=== PATIENT | female | born 1955 | race Caucasian/White ===

== ENCOUNTER 2019-02-14 00:15 | Inpatient (IN) | payer MEDICARE, OTHER ==
[2019-02-14] MEDS ORDERED: DILTIAZEM DRIP BOLUS FROM BAG 1 MG SOLN IV ONE (00:43)
[2019-02-14] MEDS ORDERED: DILTIAZEM 125 MG in SODIUM CHLORIDE 0.9% 100 ML IV SCH (00:45)
--- NOTE | 2019-02-14 00:45 | ED ---
SOB HPI - General Chief Complaint: Shortness of Breath Stated Complaint: Shortness of Breath Time Seen by Provider: 02/14/19 00:25 Source: patient Mode of arrival: ambulatory Limitations: no limitations - History of Present Illness Initial Comments: this patient is a 63-year-old woman who presents with complaint of shortness of breath and orthopnea. The patient's symptoms began between 1-2 weeks ago and started with some exertional dyspnea and orthopnea. She states that she had previously had this when she had gone and atrial fibrillation and she thought that she may have had a recurrence of the A. fib. The patient states that she was not feeling palpitations, but states that she did not have palpitations the last time she was in atrial fibrillation. The symptoms seemed to be worse over the course of this evening and the patient's daughter convinced her to be evaluated tonight. Patient denies chest pain, nausea or vomiting. MD Complaint: shortness of breath Onset/Timin -: week(s) Improves With: nothing Worsens With: lying flat, exertion Known History Of: congestive heart failure Associated Symptoms: denies other symptoms Treatments Prior to Arrival: none - Related Data Home Oxygen Therapy: No Home Medications Medication Instructions Recorded Confirmed Atorvastatin [Lipitor] 40 mg PO DAILY 01/19/16 01/19/16 Lisinopril [Zestril] 20 mg PO DAILY 01/19/16 01/19/16 Previous Rx's Medication Instructions Recorded ALPRAZolam [Xanax] 0.25 mg PO TID PRN #0 tab 01/23/16 HYDROcodone/APAP 5-325MG [Verner 1 each PO Q6HR PRN #0 tab 01/23/16 5-325] Sulfamethox-Tmp 800-160Mg [Bactrim 1 tab PO Q12HR #10 tab 01/23/16 DS 800-160 mg] Warfarin [Coumadin] 5 mg PO 1800 #30 tab 01/23/16 Allergies Allergy/AdvReac Type Severity Reaction Status Date / Time No Known Allergies Allergy Verified 02/14/19 00:20 Review of Systems ROS Statement: Those systems with pertinent positive or pertinent negative responses have been documented in the HPI. ROS Other: All systems not noted in ROS Statement are negative. Constitutional: Denies: fever, chills Respiratory: Reports: dyspnea. Denies: cough, wheezes, hemoptysis Cardiovascular: Reports: dyspnea on exertion, orthopnea, edema. Denies: chest pain, palpitations, syncope Gastrointestinal: Denies: abdominal pain, nausea, vomiting, melena, hematochezia Genitourinary: Denies: dysuria, hematuria Musculoskeletal: Denies: back pain Skin: Denies: rash Neurological: Denies: headache, weakness, numbness Past Medical History Past Medical History: Atrial Fibrillation, Heart Failure, CVA/TIA, Hypertension Additional Past Medical History / Comment(s): TIA, BRONCHITIS, UTI'S,ARHTRITIS, ANEMIA WHEN SHE WAS , STRESS TEST(WNL) PT PUT HER SELF ON LOW CARB DIET AND LOST 40 POUNDS IN A YEAR. BROKE RT HAND D/T A FALL JUST GOT CAST OFF 3 DAYS AGO,OFF WORK FOR PT.PAST CHF(2013), PT ON COUMADIN FOR AFIB. History of Any Multi-Drug Resistant Organisms: None Reported Past Surgical History: Section Additional Past Surgical History / Comment(s): X3, TUMMY TUCK Past Anesthesia/Blood Transfusion Reactions: Motion Sickness Past Psychological History: No Psychological Hx Reported Smoking Status: Never smoker Past Alcohol Use History: None Reported Past Drug Use History: None Reported - Past Family History Father Family Medical History: Myocardial Infarction ([place]) Additional Family Medical History / Comment(s): PACEMAKER Mother Family Medical History: Cancer Additional Family Medical History / Comment(s): LYMPHMA General Exam Limitations: no limitations General appearance: alert, in no apparent distress Head exam: Present: atraumatic, normocephalic Eye exam: Present: normal appearance Respiratory exam: Present: rales (bilateral bases). Absent: respiratory distress, wheezes, rhonchi, stridor, accessory muscle use, decreased breath sounds, prolonged expiratory Cardiovascular Exam: Present: tachycardia, irregular rhythm, normal heart sounds. Absent: systolic murmur, diastolic murmur, rubs, gallop GI/Abdominal exam: Present: soft. Absent: distended, tenderness, guarding, re bound, mass Extremities exam: Present: normal inspection, normal capillary refill, pedal edema. Absent: calf tenderness Back exam: Present: normal inspection. Absent: CVA tenderness (R), CVA tenderness (L) Neurological exam: Present: alert Skin exam: Present: warm, dry, intact, normal color. Absent: rash Course Vital Signs 02/14/19 02/14/19 02/14/19 00:17 00:43 00:57 Temperature 98 F Pulse Rate 139 H 130 H Respiratory 22 22 20 Rate Blood Pressure 159/118 150/115 O2 Sat by Pulse 96 97 Oximetry Medical Decision Making - Lab Data Result diagrams: 02/14/19 00:40 02/14/19 00:40 Lab Results 02/14/19 02/14/19 02/14/19 Range/Units 00:40 00:40 00:40 WBC 7.4 (3.8-10.6) k/uL RBC 4.46 (3.80-5.40) m/uL Hgb 12.8 (11.4-16.0) gm/dL Hct 40.0 (34.0-46.0) % MCV 89.7 (80.0-100.0) fL MCH 28.8 (25.0-35.0) pg MCHC 32.1 (31.0-37.0) g/dL RDW 13.2 (11.5-15.5) % Plt Count 166 (150-450) k/uL Neutrophils % 61 % Lymphocytes % 32 % Monocytes % 5 % Eosinophils % 1 % Basophils % 1 % Neutrophils # 4.5 (1.3-7.7) k/uL Lymphocytes # 2.3 (1.0-4.8) k/uL Monocytes # 0.3 (0-1.0) k/uL Eosinophils # 0.1 (0-0.7) k/uL Basophils # 0.0 (0-0.2) k/uL PT 34.3 H (9.0-12.0) sec INR 3.6 H (<1.2) APTT 39.1 H (22.0-30.0) sec D-Dimer <0.17 (<0.60) mg/L FEU Sodium 139 (137-145) mmol/L Potassium 3.8 (3.5-5.1) mmol/L Chloride 107 (98-107) mmol/L Carbon Dioxide 24 (22-30) mmol/L Anion Gap 8 mmol/L BUN 25 H (7-17) mg/dL Creatinine 0.90 (0.52-1.04) mg/dL Est GFR (CKD-EPI)AfAm 78 (>60 ml/min/1.73 sqM) Est GFR (CKD-EPI)NonAf 68 (>60 ml/min/1.73 sqM) Glucose 156 H (74-99) mg/dL Calcium 9.2 (8.4-10.2) mg/dL Total Bilirubin 0.7 (0.2-1.3) mg/dL AST 41 H (14-36) U/L ALT 33 (4-34) U/L Alkaline Phosphatase 77 (38-126) U/L Troponin I (0.000-0.034) ng/mL NT-Pro-B Natriuret Pep pg/mL Total Protein 6.3 (6.3-8.2) g/dL Albumin 4.0 (3.5-5.0) g/dL 02/14/19 02/14/19 Range/Units 00:40 00:40 WBC (3.8-10.6) k/uL RBC (3.80-5.40) m/uL Hgb (11.4-16.0) gm/dL Hct (34.0-46.0) % MCV (80.0-100.0) fL MCH (25.0-35.0) pg MCHC (31.0-37.0) g/dL RDW (11.5-15.5) % Plt Count (150-450) k/uL Neutrophils % % Lymphocytes % % Monocytes % % Eosinophils % % Basophils % % Neutrophils # (1.3-7.7) k/uL Lymphocytes # (1.0-4.8) k/uL Monocytes # (0-1.0) k/uL Eosinophils # (0-0.7) k/uL Basophils # (0-0.2) k/uL PT (9.0-12.0) sec INR (<1.2) APTT (22.0-30.0) sec D-Dimer (<0.60) mg/L FEU Sodium (137-145) mmol/L Potassium (3.5-5.1) mmol/L Chloride (98-107) mmol/L Carbon Dioxide (22-30) mmol/L Anion Gap mmol/L BUN (7-17) mg/dL Creatinine (0.52-1.04) mg/dL Est GFR (CKD-EPI)AfAm (>60 ml/min/1.73 sqM) Est GFR (CKD-EPI)NonAf (>60 ml/min/1.73 sqM) Glucose (74-99) mg/dL Calcium (8.4-10.2) mg/dL Total Bilirubin (0.2-1.3) mg/dL AST (14-36) U/L ALT (4-34) U/L Alkaline Phosphatase (38-126) U/L Troponin I 0.037 H* (0.000-0.034) ng/mL NT-Pro-B Natriuret Pep 8950 pg/mL Total Protein (6.3-8.2) g/dL Albumin (3.5-5.0) g/dL - EKG Data -: EKG Interpreted by Me EKG shows normal: axis (normal), intervals (normal), QRS complexes (normal), ST- T waves (normal) Rate: tachycardia (underlying rhythm is atrial fibrillation with a rate approximately 155 bpm) Critical Care Time Critical Care Time: Yes (30 minutes) Disposition Clinical Impression: Atrial fibrillation with rapid ventricular response Disposition: ADMITTED IP TO THIS HOSP Condition: Fair Referrals: Kiran Novak MD [Primary Care Provider] - 1-2 days
[2019-02-14 00:56] LABS: Basophils % (A) 1 %; Eosinophils # (A) 0.1 k/uL (0-0.7); Eosinophils % (A) 1 %; HGB 12.8 gm/dL (11.4-16.0); Lymphocytes # (A) 2.3 k/uL (1.0-4.8); Lymphocytes % (A) 32 %; MCH 28.8 pg (25.0-35.0); MCHC 32.1 g/dL (31.0-37.0); MCV 89.7 fL (80.0-100.0); Mean Platelet Volume 7.9; Monocytes # (A) 0.3 k/uL (0-1.0); Monocytes % (A) 5 %; Neutrophils # (A) 4.5 k/uL (1.3-7.7); Neutrophils % (A) 61 %; Platelet Count 166 k/uL (150-450); RBC 4.46 m/uL (3.80-5.40); RDW 13.2 % (11.5-15.5); WBC 7.4 k/uL (3.8-10.6)
[2019-02-14 01:04] LABS: Calcium 9.2 mg/dL (8.4-10.2); Potassium 3.8 mmol/L (3.5-5.1); Total Bilirubin 0.7 mg/dL (0.2-1.3); Total Protein 6.3 g/dL (6.3-8.2)
[2019-02-14 01:07] LABS: D-Dimer <0.17 mg/L FEU (<0.60); INR 3.6 (<1.2); Partial Thromboplastin Time 39.1 sec (22.0-30.0); Prothrombin Time 34.3 sec (9.0-12.0)
--- NOTE | 2019-02-14 01:13 | XR ---
EXAMINATION TYPE: XR chest 2V DATE OF EXAM: 02/14/2019 COMPARISON: 03/22/2013 HISTORY: Short of breath TECHNIQUE: 2 views FINDINGS: There is blunting of the costophrenic angles. Heart is enlarged. There is mild pulmonary co ngestion. There are chest leads. IMPRESSION: There is evidence of mild congestive heart failure with increased pleural fluid compared to last exam.
[2019-02-14] MEDS ORDERED: ALPRAZolam 0.25 MG TAB PO PRN (01:45)
[2019-02-14] MEDS ORDERED: HYDROcodone/APAP 5-325MG 1 EACH TAB PO PRN (01:45)
[2019-02-14] MEDS: SODIUM CHLORIDE 0.9% 1,000 ML IV SCH (01:58)
[2019-02-14] MEDS: FUROSEMIDE 10 MG/ML 4 ML VIAL IV SCH ×2 (09:00→20:44)
[2019-02-14] MEDS: LISINOPRIL 20 MG TAB PO SCH (09:01)
[2019-02-14] MEDS: METOPROLOL TARTRATE 25 MG TAB PO SCH ×2 (09:01→20:44)
[2019-02-14] MEDS: ATORVASTATIN 40 MG TAB PO SCH (09:01)
[2019-02-14 09:22] LABS: Cholesterol 109 mg/dL (<200); HDL Cholesterol 50 mg/dL (40-60); LDL Cholesterol,Calculated 38 mg/dL (0-99); Triglycerides 103 mg/dL (<150)
--- NOTE | 2019-02-14 09:44 | P.CRDCN ---
History of Present Illness History of present illness: HISTORY OF PRESENTING ILLNESS This is a pleasant 63-year-old female past medical history significant for is no atrial fibrillation on long-term anticoagulation, systolic heart fail ure associated with A. fib and hypertension. She follows in the office with Dr. Amin. We have been asked to see in consultation for atrial fibrillation with rapid ventricular response. She states for the previous one month she has been noticing exertional shortness of breath. It has been getting progressively worse. She works at a quite active job at [employer] which requires a lot of lifting and exertion. She has noticed she has had to stop and take frequent breaks while working as well as at home. She has also had more frequent orthopnea and has been sleeping propped up. She does not feel palpitations or dizziness. She states 3 days ago she did experience an episode of chest disco mfort while at work. She had been lifting some boxes and she felt as though she pulled a muscle. She states the pain in the chest was worse when she moved her arms. It is not associated with exertion. There is no radiation to the arm, back, neck or jaw. DIAGNOSTICS EKG reveals atrial fibrillation with rapid ventricular response. Chest xray congestive heart failure. Laboratory reviewed, CBC unremarkable, INR 3.6, d-dimer less than 0.17, sodium 139, potassium 3.8, creatinine 0.9, troponin 0.037, NT proBNP 8950, LDL 38. Current cardiac medications include Coumadin, lisinopril 40 mg daily, Lasix 20 mg daily and atorvastatin 40 mg daily. REVIEW OF SYSTEMS At the time of my exam: CONSTITUTIONAL: Denies fever or chills. CARDIOVASCULAR: Complains of exertional shortness of breath, PND and orthopnea Denies chest pain or palpitations. RESPIRATORY: Denies cough. GASTROINTESTINAL: Denies abdominal pain, diarrhea, constipation, nausea or vomiting. MUSCULOSKELETAL: Denies myalgias. NEUROLOGIC: Denies numbness, tingling or weakness. ENDOCRINE: Denies fatigue, weight change, polydipsia or polyurina. GENITOURINARY: Denies burning, hematuria or urgency with micturation. HEMATOLOGIC: Denies history of anemia or bleeding. PHYSICAL EXAMINATION Blood pressure 136/99 heart rate and 130 afebrile and maintaining oxygen saturation on room air. CONSTITUTIONAL: No apparent distress. HEENT: Head is normocephalic. Pupils are equal, round. Sclerae anicteric. Mucous membranes of the mouth are moist. No JVD. No carotid bruit. CHEST EXAMINATION: Bibasilar rales, no wheezes or rhonchi No chest wall tenderness is noted on palpation or with deep breathing. HEART EXAMINATION: Irregular rate and rhythm. S1, S2 heard. No murmurs, gallops or rub. ABDOMEN: Soft, nontender. Positive bowel sounds. EXTREMITIES: 2+ peripheral pulses, trace bilateral lower extremity edema and no calf tenderness. NEUROLOGIC EXAMINATION: Patient is awake, alert and oriented x3. ASSESSMENT Atrial fibrillation with rapid ventricular response, history of paroxysmal A. fib on long-term anticoagulation Acute on chronic heart failure, recent echo in the office revealed preserved LV systolic function with ejection fraction 55%. Prior to that in 2013 ejection fraction was 40%. Mild troponin elevation, unknown etiology at this time. We will continue to trend and assess for rise and fall. May be related to RVR Hypertension Supratherapeutic INR PLAN Initiate amiodarone infusion to convert to sinus mechanism. Obtain 2-D echocardiogram and Doppler study to assess cardiac structure and function. Obtain stat troponin. Initiate on IV Lasix 40 mg twice a day and Lopressor 25 mg twice a day. Continue Cardizem infusion. Document accurate intake and output along with daily weights. Follow electrolytes and renal function in the morning. Further recommendations to follow based upon clinical course. Thank you kindly for this consultation. Nurse Practitioner note has been reviewed, I agree with a documented findings and plan of care. Patient was seen and examined. Past Medical History Past Medical History: Atrial Fibrillation, Heart Failure, CVA/TIA, Hypertension Additional Past Medical History / Comment(s): TIA, BRONCHITIS, UTI'S,ARHTRITIS, ANEMIA WHEN SHE WAS , STRESS TEST(WNL) PT PUT HER SELF ON LOW CARB DIET AND LOST 40 POUNDS IN A YEAR. BROKE RT HAND D/T A FALL JUST GOT CAST OFF 3 DAYS AGO,OFF WORK FOR PT.PAST CHF(2013), PT ON COUMADIN FOR AFIB. History of Any Multi-Drug Resistant Organisms: None Reported Past Surgical History: Section Additional Past Surgical History / Comment(s): X3, TUMMY TUCK Past Anesthesia/Blood Transfusion Reactions: Motion Sickness Past Psychological History: No Psychological Hx Reported Smoking Status: Never smoker Past Alcohol Use History: None Reported Past Drug Use History: None Reported - Past Family History Father Family Medical History: Myocardial Infarction ([place]) Additional Family Medical History / Comment(s): PACEMAKER Mother Family Medical History: Cancer Additional Family Medical History / Comment(s): LYMPHMA Medications and Allergies Home Medications Medication Instructions Recorded Confirmed Type Atorvastatin [Lipitor] 40 mg PO DAILY 01/19/16 02/14/19 History Acetaminophen Tab [Tylenol Tab] 650 mg PO Q4H PRN 02/14/19 02/14/19 History Furosemide [Lasix] 20 mg PO DAILY 02/14/19 02/14/19 History Lisinopril 40 mg PO DAILY 02/14/19 02/14/19 History Warfarin [Coumadin] 2.5 mg PO TUSA 02/14/19 02/14/19 History Warfarin [Coumadin] 5 mg PO SUMOWETHFR 02/14/19 02/14/19 History Allergies Allergy/AdvReac Type Severity Reaction Status Date / Time No Known Allergies Allergy Verified 02/14/19 08:07 Physical Exam Vitals: Vital Signs Temp Pulse Pulse Resp BP BP Pulse Ox 02/14/19 08:00 97.2 F L 130 H 18 136/99 94 L 02/14/19 03:02 97.3 F L 105 H 18 121/86 95 02/14/19 00:57 130 H 20 150/115 97 02/14/19 00:43 22 02/14/19 00:17 98 F 139 H 22 159/118 96 Intake and Output 02/13/19 02/14/19 02/14/19 22:59 06:59 14:59 Intake Total 400 210 Balance 400 210 Intake: IV 10 Invasive Line 1 10 Oral 400 200 Other: Weight 86 kg Results 02/14/19 00:40 02/14/19 00:40 Cardiac Enzymes 02/14/19 02/14/19 Range/Units 00:40 00:40 AST 41 H (14-36) U/L Troponin I 0.037 H* (0.000-0.034) ng/mL Coagulation 02/14/19 Range/Units 00:40 PT 34.3 H (9.0-12.0) sec APTT 39.1 H (22.0-30.0) sec Lipids 02/14/19 Range/Units 08:55 Triglycerides 103 (<150) mg/dL Cholesterol 109 (<200) mg/dL HDL Cholesterol 50 (40-60) mg/dL CBC 02/14/19 Range/Units 00:40 WBC 7.4 (3.8-10.6) k/uL RBC 4.46 (3.80-5.40) m/uL Hgb 12.8 (11.4-16.0) gm/dL Hct 40.0 (34.0-46.0) % Plt Count 166 (150-450) k/uL Comprehensive Metabolic Panel 02/14/19 Range/Units 00:40 Sodium 139 (137-145) mmol/L Potassium 3.8 (3.5-5.1) mmol/L Chloride 107 (98-107) mmol/L Carbon Dioxide 24 (22-30) mmol/L BUN 25 H (7-17) mg/dL Creatinine 0.90 (0.52-1.04) mg/dL Glucose 156 H (74-99) mg/dL Calcium 9.2 (8.4-10.2) mg/dL AST 41 H (14-36) U/L ALT 33 (4-34) U/L Alkaline Phosphatase 77 (38-126) U/L Total Protein 6.3 (6.3-8.2) g/dL Albumin 4.0 (3.5-5.0) g/dL Current Medications Generic Name Dose Route Start Last Admin Trade Name Freq PRN Reason Stop Dose Admin Hydrocodone Bitart/Acetaminophen 1 each 02/14/19 01:45 [place] 5-325 PO Q6HR PRN Moderate Pain Alprazolam 0.25 mg 02/14/19 01:45 Xanax PO TID PRN Anxiety Atorvastatin Calcium 40 mg 02/14/19 09:00 02/14/19 09:01 Lipitor PO 40 mg DAILY ANDREINA Administration Furosemide 40 mg 02/14/19 09:00 02/14/19 09:00 Lasix IV 40 mg Q12HR ANDREINA Administration Diltiazem HCl 125 mg/ Sodium 125 mls @ 5 mls/hr 02/14/19 00:45 02/14/19 00:54 Chloride IV 5 mg/hr .Q24H ANDREINA 5 mls/hr Administration 5 MG/HR Sodium Chloride 1,000 mls @ 20 mls/hr 02/14/19 01:45 12/22/19 01:58 Saline 0.9% IV 20 mls/hr .Q24H ANDREINA Administration Lisinopril 20 mg 02/14/19 09:00 02/14/19 09:01 Zestril PO 20 mg DAILY ANDREINA Administration Metoprolol Tartrate 25 mg 02/14/19 09:00 02/14/19 09:01 Lopressor PO 25 mg BID ANDREINA Administration Warfarin Sodium 5 mg 02/15/19 18:00 Coumadin PO 1800 ANDREINA Intake and Output 02/13/19 02/14/19 02/14/19 22:59 06:59 14:59 Intake Total 400 210 Balance 400 210 Intake: IV 10 Invasive Line 1 10 Oral 400 200 Other: Weight 86 kg 02/14/19 00:40 02/14/19 00:40
[2019-02-14] MEDS ORDERED: DEXTROSE 5% IN WATER 100 ML with AMIODARONE 150 MG IV ONE (09:50)
[2019-02-14] MEDS ORDERED: AMIODARONE 360 MG in DEXTROSE 5% IN WATER 200 ML IV ONE ×2 (10:00)
[2019-02-14 10:45] VITALS: BMI 30.6
--- NOTE | 2019-02-14 11:46 | P.HPIM ---
History of Present Illness 63-year-old female came in with comments of shortness of breath orthopnea possible proximal nocturnal dyspnea, patient does have history of atrial fibrillation found to be in A. fib with rapid ventricular rate patient had normal ejection fraction from the recent echocardiogram patient had a low ejection fraction 2013. Patient shortness of breath has been progressively getting worse for few weeks. Patient denied any palpitations patient denied any lightheadedness. Patient denied any significant chest pain patient does have m inimally elevated troponin probably secondary to heart failure and A. fib. Patient had some musculoskeletal chest pain Review of Systems REVIEW OF SYSTEMS: CONSTITUTIONAL: No fever, no malaise, no fatigue. HEENT: No recent visual problems or hearing problems. Denied any sore throat. CARDIOVASCULAR: no palpitations, no syncope. PULMONARY:no cough, no hemoptysis. GASTROINTESTINAL: No diarrhea, no nausea, no vomiting, no abdominal pain. NEUROLOGICAL: No headaches, no weakness, no numbness. HEMATOLOGICAL: Denies any bleeding or petechiae. GENITOURINARY: Denies any burning micturition, frequency, or urgency. MUSCULOSKELETAL/RHEUMATOLOGICAL: Denies any joint pain, swelling, or any muscle pain. ENDOCRINE: Denies any polyuria or polydipsia. The rest of the 14-point review of systems is negative. Past Medical History Past Medical History: Atrial Fibrillation, Heart Failure, CVA/TIA, Hypertension Additional Past Medical History / Comment(s): TIA, BRONCHITIS, UTI'S,ARHTRITIS, ANEMIA WHEN SHE WAS , STRESS TEST(WNL) PT PUT HER SELF ON LOW CARB DIET AND LOST 40 POUNDS IN A YEAR. BROKE RT HAND D/T A FALL JUST GOT CAST OFF 3 DAYS AGO,OFF WORK FOR PT.PAST CHF(2013), PT ON COUMADIN FOR AFIB. History of Any Multi-Drug Resistant Organisms: None Reported Past Surgical History: Section Additional Past Surgical History / Comment(s): X3, TUMMY TUCK Past Anesthesia/Blood Transfusion Reactions: Motion Sickness Past Psychological History: No Psychological Hx Reported Smoking Status: Never smoker Past Alcohol Use History: None Reported Past Drug Use History: None Reported - Past Family History Father Family Medical History: Myocardial Infarction ([place]) Additional Family Medical History / Comment(s): PACEMAKER Mother Family Medical History: Cancer Additional Family Medical History / Comment(s): LYMPHMA Medications and Allergies Home Medications Medication Instructions Recorded Confirmed Type Atorvastatin [Lipitor] 40 mg PO DAILY 01/19/16 02/14/19 History Acetaminophen Tab [Tylenol Tab] 650 mg PO Q4H PRN 02/14/19 02/14/19 History Furosemide [Lasix] 20 mg PO DAILY 02/14/19 02/14/19 History Lisinopril 40 mg PO DAILY 02/14/19 02/14/19 History Warfarin [Coumadin] 2.5 mg PO TUSA 02/14/19 02/14/19 History Warfarin [Coumadin] 5 mg PO SUMOWETHFR 02/14/19 02/14/19 History Allergies Allergy/AdvReac Type Severity Reaction Status Date / Time No Known Allergies Allergy Verified 02/14/19 08:07 Physical Exam Vitals: Vital Signs Temp Pulse Pulse Resp BP BP Pulse Ox 02/14/19 10:43 98.2 F 98 16 103/74 97 02/14/19 08:00 97.2 F L 130 H 18 136/99 94 L 02/14/19 03:02 97.3 F L 105 H 18 121/86 95 02/14/19 00:57 130 H 20 150/115 97 02/14/19 00:43 22 02/14/19 00:17 98 F 139 H 22 159/118 96 Intake and Output 02/13/19 02/14/19 02/14/19 22:59 06:59 14:59 Intake Total 400 230 Balance 400 230 Intake: IV 30 Invasive Line 1 10 Invasive Line 2 20 Oral 400 200 Other: Weight 86 kg 86 kg PHYSICAL EXAMINATION: GENERAL: The patient is alert and oriented x3, not in any acute distress. Well developed, well nourished. HEENT: Pupils are round and equally reacting to light. EOMI. No scleral icterus. No conjunctival pallor. Normocephalic, atraumatic. No pharyngeal erythema. No thyromegaly. CARDIOVASCULAR: S1 and S2 present. No murmurs, rubs, or gallops. Irregularly irregular rhythm PULMONARY: Chest is clear to auscultation, no wheezing or crackles. ABDOMEN: Soft, nontender, nondistended, normoactive bowel sounds. No palpable organomegaly. MUSCULOSKELETAL: No joint swelling or deformity. EXTREMITIES: No cyanosis, clubbing, or pedal edema. NEUROLOGICAL: Gross neurological examination did not reveal any focal deficits. SKIN: No rashes. Results CBC & Chem 7: 02/14/19 00:40 02/14/19 00:40 Labs: Abnormal Lab Results - Last 24 Hours (Table) 02/14/19 02/14/19 02/14/19 Range/Units 00:40 00:40 00:40 PT 34.3 H (9.0-12.0) sec INR 3.6 H (<1.2) APTT 39.1 H (22.0-30.0) sec BUN 25 H (7-17) mg/dL Glucose 156 H (74-99) mg/dL AST 41 H (14-36) U/L Troponin I 0.037 H* (0.000-0.034) ng/mL Thrombosis Risk Factor Assmnt - Choose All That Apply Any of the Below Risk Factors Present?: No Each Risk Factor Represents 2 Points: Age 61-74 years Thrombosis Risk Factor Assessment Total Risk Factor Score: 2 Thrombosis Risk Factor Assessment Level: Low Risk Assessment and Plan Plan: -Atrial fibrillation with rapid ventricular rate patient does have history of paroxysmal A. fib on anti-correlation which is being continued patient is also on Cardizem which is being weaned down and patient was started on Imodium imbued run by cardiology -Pulmonary edema secondary to probably atrial fibrillation patient had systolic dysfunction the past which improved and patient had normal systolic function now. Patient will be on IV Lasix -Mild elevated troponin probably secondary to A. fib with rapid ventricular rate please refer to Cardiology documentation for further details -Hypertension -Mildly elevated INR. Her that we cannot hold off on Coumadin today will be resumed on 40 mg of Coumadin tomorrow
[2019-02-14] MEDS: AMIODARONE 300 MG in DEXTROSE 5% IN WATER 250 ML IV SCH ×2 (16:20)
[2019-02-14 21:56] LABS: Appearance,Urine Clear (Clear); Bacteria,Urine Occasional /hpf; Bilirubin,Urine Negative (Negative); Blood,Urine Negative (Negative); Color,Urine Yellow; Glucose,Urine (UA) Negative (Negative); Hyaline Casts,Urine 3 /lpf (0-2); Ketones,Urine Negative (Negative); Leukocyte Esterase,Urine Trace (Negative); Mucus,Urine Rare /hpf; Nitrite,Urine Positive (Negative); Protein,Urine Trace (Negative); RBC,Urine <1 /hpf (0-5); Specific Gravity,Urine 1.017 (1.001-1.035); Squamous Epithelial Cell,Urine 2 /hpf (0-4); Urobilinogen,Urine <2.0 mg/dL (<2.0); WBC,Urine 7 /hpf (0-5)
[2019-02-15 06:59] LABS: INR 2.8 (<1.2); Prothrombin Time 26.8 sec (9.0-12.0)
[2019-02-15 07:02] LABS: Calcium 8.8 mg/dL (8.4-10.2)
[2019-02-15] MEDS: SODIUM CHLORIDE 0.9% 1,000 ML IV SCH (07:16)
[2019-02-15] MEDS: AMIODARONE 300 MG in DEXTROSE 5% IN WATER 250 ML IV SCH ×2 (07:16)
[2019-02-15] MEDS ORDERED: AMIODARONE 200 MG TAB PO SCH (09:00)
[2019-02-15] MEDS: ATORVASTATIN 40 MG TAB PO SCH (09:16)
[2019-02-15] MEDS: METOPROLOL TARTRATE 25 MG TAB PO SCH ×2 (09:16→21:25)
[2019-02-15] MEDS: LISINOPRIL 20 MG TAB PO SCH (09:17)
[2019-02-15] MEDS: FUROSEMIDE 10 MG/ML 4 ML VIAL IV SCH ×2 (09:17→21:25)
--- NOTE | 2019-02-15 10:56 | ECHOF ---
Referral Reason:afib, sob MEASUREMENTS -------- HEIGHT: 162.6 cm WEIGHT: 84.8 kg BP: RVIDd: 3.2 cm (< 3.3) IVSd: 1.3 cm (0.6 - 1.1) LVIDd: 4.7 cm (3.9 - 5.3) LVPWd: 1.2 cm (0.6 - 1.1) IVSs: 1.3 cm LVIDs: 4.8 cm LVPWs: 1.4 cm LAESV Index (A-L): 67.89 ml/m Ao Diam: 2.3 cm (2.0 - 3.7) AV Cusp: 1.2 cm (1.5 - 2.6) LA Diam: 4.8 cm (2.7 - 3.8) MV EXCURSION: 14.837 mm (> 18.000) MV EF SLOPE: 75 mm/s (70 - 150) EPSS: 1.2 cm MV E Fadi: 0.96 m/s MV DecT: 142 ms MV A Fadi: 0.02 m/s MV E/A Ratio: 42.54 RAP: 15.00 mmHg RVSP: 64.09 mmHg FINDINGS -------- Atrial fibrillation. This was a techncally difficult study with suboptimal views, , Lumason utilized for enhancement of im ages. The left ventricular size is normal. There is mild concentric left ventricular hypertrophy. There is severe global hypokinesis of LV . Overall left ventricular systolic function is severely impair ed with, an EF < 20%. Left ventricular fillimg pressure cannot be estimated due to Atrial fibrillat ion. The right ventricle is normal in size. LA is severely dilated >40 ml/m2 The right atrial size is normal. There is mild aortic valve sclerosis. There is no evidence of aortic regurgitation. Mild mitral annular calcification present. Severe mitral regurgitation is present. Moderate tricuspid regurgitation present. There is moderate to severe pulmonary hypertension. The right ventricular systolic pressure, as measured by Doppler, is 64.09mmHg. Trace/mild (physiologic) pulmonic regurgitation. The aortic root size is normal. There is a trivial pericardial effusion present. CONCLUSIONS -------- 1. Atrial fibrillation. 2. This was a techncally difficult study with suboptimal views, , Lumason utilized for enhancement of images. 3. There is mild concentric left ventricular hypertrophy. 4. There is severe global hypokinesis of LV . 5. Overall left ventricular systolic function is severely impaired with, an EF < 20%. 6. Left ventricular fillimg pressure cannot be estimated due to Atrial fibrillation. 7. LA is severely dilated >40 ml/m2 8. There is mild aortic valve sclerosis. 9. Mild mitral annular calcification present. 10. Severe mitral regurgitation is present. 11. Moderate tricuspid regurgitation present. 12. There is moderate to severe pulmonary hypertension. 13. Trace/mild (physiologic) pulmonic regurgitation. 14. The aortic root size is normal. 15. There is a trivial pericardial effusion present. [employer] SALES CONSULTANT: Lucy Merrill RDCS
--- NOTE | 2019-02-15 14:36 | P.PN ---
Subjective Progress Note Date: 02/15/19 This is a pleasant 63-year-old female past medical history significant for is no atrial fibrillation on long-term anticoagulation, systolic heart failure associated with A. fib and hypertension. She follows in the office with Dr. Amin. We have been asked to see in consultation for atrial fibrillation with rapid ventricular response. patient was complaining of feeling quite short of breath, she was initiated on IV Lasix. Gabriel weight is down 1 kg today.he is diuresing well through the night, but still feel somewhat short of breath today.pro time 26.8 with an INR of 2.8. Sodium 139, potassium 4.0, BUN 25, creatinine 0.9.echocardiogram with Doppler study revealed an ejection fraction of less than 20%, severe mitral regurgitation, moderate tricuspid regurg.blood pressure 110/70 with a heart rate in the 80s, 94% on room air.the patient continues to be in atrial fibrillation this morning, she is on IV amiodarone, this afternoon we will change her over to oral amiodarone. Objective - Vital Signs Vital signs: Vital Signs Temp 97.7 F 02/15/19 12:00 Pulse 85 02/15/19 12:00 Resp 16 02/15/19 12:00 BP 109/79 02/15/19 12:00 Pulse Ox 94 L 02/15/19 12:00 Intake & Output 02/14/19 02/15/19 02/15/19 18:59 06:59 18:59 Intake Total 815.5 520 Balance 815.5 520 Weight 86 kg 85 kg Intake: IV 90 60 Invasive Line 1 30 40 Invasive Line 2 60 20 Intake, IV Titration 65.5 Amount Diltiazem 125 mg In 65.5 Sodium Chloride 0.9% 100 ml @ 5 MG/HR 5 mls/hr IV .Q24H [facility] Rx#:[id number] Oral 660 460 Other: Voiding Method Toilet Toilet # Voids 1 1 - Exam PHYSICAL EXAMINATION Blood pressure 136/99 heart rate and 130 afebrile and maintaining oxygen saturation on room air. CONSTITUTIONAL: No apparent distress. HEENT: Head is normocephalic. Pupils are equal, round. Sclerae anicteric. Mucous membranes of the mouth are moist. No JVD. No carotid bruit. CHEST EXAMINATION: Bibasilar rales, no wheezes or rhonchi No chest wall tenderness is noted on palpation or with deep breathing. HEART EXAMINATION: Irregular rate and rhythm. S1, S2 heard. No murmurs, gallops or rub. ABDOMEN: Soft, nontender. Positive bowel sounds. EXTREMITIES: 2+ peripheral pulses, trace bilateral lower extremity edema and no calf tenderness. NEUROLOGIC EXAMINATION: Patient is awake, alert and oriented x3. - Labs CBC & Chem 7: 02/14/19 00:40 02/15/19 05:49 Labs: Abnormal Lab Results - Last 24 Hours (Table) 02/14/19 02/15/19 02/15/19 Range/Units 21:00 05:49 05:53 PT 26.8 H (9.0-12.0) sec INR 2.8 H (<1.2) Chloride 108 H (98-107) mmol/L BUN 25 H (7-17) mg/dL Urine Protein Trace H (Negative) Urine Nitrite Positive H (Negative) Ur Leukocyte Esterase Trace H (Negative) Urine WBC 7 H (0-5) /hpf Urine Bacteria Occasional H (None) /hpf Hyaline Casts 3 H (0-2) /lpf Urine Mucus Rare H (None) /hpf Assessment and Plan Plan: ASSESSMENTand plan #1Atrial fibrillation with rapid ventricular response, history of paroxysmal A. fib on long-term anticoagulationwith Coumadin #2 systolic congestive heart failure acute on chronic. #3Mild troponin elevation, we will obtain a third troponin. #4Hypertension plan Echocardiogram with Doppler study was performed which revealed an ejection fraction of less than 20%, severe mitral regurgitation and moderate tricuspid regurg. We will obtain the office records to see what the patient's most recent LV function was in the past.if the patient's LV function is normal in the past, she may require cardiac catheterization, this will be determined after reviewing her prior records. We will then discuss further with the patient as well. DNP note has been reviewed, I agree with a documented findings and plan of care. Patient was seen and examined.
[2019-02-15] MEDS: SPIRONOLACTONE 25 MG TAB PO SCH (15:23)
[2019-02-15] MEDS: AMIODARONE 200 MG TAB PO SCH ×2 (15:23→21:26)
--- NOTE | 2019-02-15 15:26 | P.PN ---
Subjective Patient is admitted for atrial fibrillation which is presently rate controlled in sinus rhythm. Patient is also being treated for congestive heart failure now we have an echocardiogram which showed ejection fraction of 20% her previous echo results unknown if patient the had normal EF in the past and now decreased EF then patient will need a cardiac catheterization. Patient had a tricuspid regurgitation severe pulmonary hypertension and dilated right ventricle. is severe global hypokinesis. Patient INR is therapeutic patient will be given 4 mg of Coumadin today. Constitutional: Denied any fatigue denied any fever. Cardio vascular: denied any chest pain, palpitations Gastrointestinal denied any nausea vomiting Pulmonary: Still short of breath but much better compared to yesterday Neurologic denied any new focal deficits All inpatient medications were reviewed and appropriate changes in these medications as dictated in the interval history and assessment and plan. Objective - Vital Signs Vital signs: Vital Signs Temp 97.7 F 02/15/19 12:00 Pulse 85 02/15/19 12:00 Resp 16 02/15/19 12:00 BP 109/79 02/15/19 12:00 Pulse Ox 94 L 02/15/19 12:00 Intake & Output 02/14/19 02/15/19 02/15/19 18:59 06:59 18:59 Intake Total 815.5 520 Balance 815.5 520 Weight 86 kg 85 kg Intake: IV 90 60 Invasive Line 1 30 40 Invasive Line 2 60 20 Intake, IV Titration 65.5 Amount Diltiazem 125 mg In 65.5 Sodium Chloride 0.9% 100 ml @ 5 MG/HR 5 mls/hr IV .Q24H [facility] Rx#:[id number] Oral 660 460 Other: Voiding Method Toilet Toilet # Voids 1 1 - Exam PHYSICAL EXAMINATION: GENERAL: The patient is alert and oriented x3, not in any acute distress. Well developed, well nourished. HEENT: Pupils are round and equally reacting to light. EOMI. No scleral icterus. No conjunctival pallor. Normocephalic, atraumatic. No pharyngeal erythema. No thyromegaly. CARDIOVASCULAR: S1 and S2 present. No murmurs, rubs, or gallops. Irregularly irregular rhythm PULMONARY: Chest is clear to auscultation, no wheezing or crackles. ABDOMEN: Soft, nontender, nondistended, normoactive bowel sounds. No palpable organomegaly. MUSCULOSKELETAL: No joint swelling or deformity. EXTREMITIES: No cyanosis, clubbing, or pedal edema. NEUROLOGICAL: Gross neurological examination did not reveal any focal deficits. SKIN: No rashes. - Labs CBC & Chem 7: 02/14/19 00:40 02/15/19 05:49 Labs: Abnormal Lab Results - Last 24 Hours (Table) 02/14/19 02/15/19 02/15/19 Range/Units 21:00 05:49 05:53 PT 26.8 H (9.0-12.0) sec INR 2.8 H (<1.2) Chloride 108 H (98-107) mmol/L BUN 25 H (7-17) mg/dL Urine Protein Trace H (Negative) Urine Nitrite Positive H (Negative) Ur Leukocyte Esterase Trace H (Negative) Urine WBC 7 H (0-5) /hpf Urine Bacteria Occasional H (None) /hpf Hyaline Casts 3 H (0-2) /lpf Urine Mucus Rare H (None) /hpf Assessment and Plan Plan: -Atrial fibrillation with rapid ventricular rate, presently rate controlled and sinus rhythm patient does have history of paroxysmal A. fib on coagulation which is being continued patient is off Cardizem which is being weaned down patient is presently on metoprolol as well. Patient is therapeutic on INR patient was given 4 mg of Coumadin with repeat INR tomorrow -Pulmonary edema secondary to secondary to start failure systolic dysfunction unsure whether it's acute or chronic further management as mentioned above patient was started on lisinopril and Aldactone as well. -Mild elevated troponin probably secondary to A. fib with rapid ventricular rate please refer to Cardiology documentation for further details -Hypertension -Severe pulmonary hypertension -Severe tricuspid regurgitation from pulmonary hypertension
[2019-02-15] MEDS ORDERED: WARFARIN 5 MG TAB PO SCH (18:00)
[2019-02-15] MEDS ORDERED: WARFARIN 2 MG TAB PO SCH (18:00)
[2019-02-15] MEDS: MELATONIN 5 MG TABLET PO SCH (21:26)
[2019-02-16] MEDS: SODIUM CHLORIDE 0.9% 1,000 ML IV SCH ×2 (03:23→22:11)
[2019-02-16 04:13] LABS: Calcium 8.7 mg/dL (8.4-10.2); Potassium 3.8 mmol/L (3.5-5.1)
[2019-02-16 04:14] LABS: INR 2.1 (<1.2); Prothrombin Time 20.9 sec (9.0-12.0)
[2019-02-16] MEDS: SPIRONOLACTONE 25 MG TAB PO SCH (08:37)
[2019-02-16] MEDS: METOPROLOL TARTRATE 25 MG TAB PO SCH ×2 (08:37→20:19)
[2019-02-16] MEDS: AMIODARONE 200 MG TAB PO SCH ×2 (08:37→20:19)
[2019-02-16] MEDS: ATORVASTATIN 40 MG TAB PO SCH (08:38)
[2019-02-16] MEDS: FUROSEMIDE 10 MG/ML 4 ML VIAL IV SCH ×2 (08:38→20:19)
[2019-02-16] MEDS: LISINOPRIL 20 MG TAB PO SCH (08:38)
--- NOTE | 2019-02-16 11:26 | P.PN ---
Subjective Patient is admitted for atrial fibrillation which is presently rate controlled in sinus rhythm. Patient is also being treated for congestive heart failure now we have an echocardiogram which showed ejection fraction of 20% her previous echo results unknown if patient the had normal EF in the past and now decreased EF then patient will need a cardiac catheterization. Patient had a tricuspid regurgitation severe pulmonary hypertension and dilated right ventricle. is severe global hypokinesis. Patient INR is therapeutic patient will be given 4 mg of Coumadin today. 02/16/2019 Patient is a INR is 2.1 patient will continued on same dose of Lasix Coumadin. Patient will undergo cardioversion today. Patient is rate controlled still in A. fib status of breath improved patient is off oxygen. Patient's ejection fraction is only 20% eventually will need cardiac catheterization dictation of which will be left to cardiology. Constitutional: Denied any fatigue denied any fever. Cardio vascular: denied any chest pain, palpitations Gastrointestinal denied any nausea vomiting Pulmonary: Still short of breath but much better compared to yesterday Neurologic denied any new focal deficits All inpatient medications were reviewed and appropriate changes in these medications as dictated in the interval history and assessment and plan. Objective - Vital Signs Vital signs: Vital Signs Temp 98.4 F 02/16/19 08:40 Pulse 75 02/16/19 08:40 Resp 18 02/16/19 08:40 BP 134/90 02/16/19 08:40 Pulse Ox 96 02/16/19 08:40 Intake & Output 02/15/19 02/16/19 02/16/19 18:59 06:59 18:59 Intake Total 1088 10 Balance 1088 10 Weight 83.2 kg Intake: IV 70 10 Invasive Line 1 40 Invasive Line 2 30 10 Oral 1018 Other: Voiding Method Toilet Toilet Toilet # Voids 1 - Exam PHYSICAL EXAMINATION: GENERAL: The patient is alert and oriented x3, not in any acute distress. Well developed, well nourished. HEENT: Pupils are round and equally reacting to light. EOMI. No scleral icterus. No conjunctival pallor. Normocephalic, atraumatic. No pharyngeal erythema. No thyromegaly. CARDIOVASCULAR: S1 and S2 present. No murmurs, rubs, or gallops. Irregularly irregular rhythm PULMONARY: Chest is clear to auscultation, no wheezing or crackles. ABDOMEN: Soft, nontender, nondistended, normoactive bowel sounds. No palpable organomegaly. MUSCULOSKELETAL: No joint swelling or deformity. EXTREMITIES: No cyanosis, clubbing, or pedal edema. NEUROLOGICAL: Gross neurological examination did not reveal any focal deficits. SKIN: No rashes. - Labs CBC & Chem 7: 02/14/19 00:40 02/16/19 03:38 Labs: Abnormal Lab Results - Last 24 Hours (Table) 02/16/19 02/16/19 Range/Units 03:38 03:38 PT 20.9 H (9.0-12.0) sec INR 2.1 H (<1.2) BUN 30 H (7-17) mg/dL Creatinine 1.13 H (0.52-1.04) mg/dL Assessment and Plan Plan: -Atrial fibrillation with rapid ventricular rate, presently rate controlled in A. fib and patient will undergo cardioversion today. Patient's INR is therapeutic, patient is on metoprolol which will be on 5 mg of Coumadin today as mentioned above -Pulmonary edema secondary to secondary to start failure systolic dysfunction unsure whether it's acute or chronic further management as mentioned above patient was started on lisinopril and Aldactone as well. Patient is fairly will be cut this time -Mild elevated troponin probably secondary to A. fib with rapid ventricular rate please refer to Cardiology documentation for further details -Hypertension -Severe pulmonary hypertension -Severe tricuspid regurgitation from pulmonary hypertension
[2019-02-16] MEDS ORDERED: PROPOFOL 10 MG/ML 20 ML VIAL IV ONE (14:12)
[2019-02-16] MEDS ORDERED: SODIUM CHLORIDE 0.9% 1,000 ML IV ONE ×3 (14:14)
[2019-02-16] MEDS ORDERED: ACETAMINOPHEN TAB 325 MG TAB PO PRN (14:31)
[2019-02-16] MEDS ORDERED: WARFARIN 5 MG TAB PO SCH (18:00)
--- NOTE | 2019-02-16 19:21 | P.PCN ---
Date of Procedure: 02/16/19 Preoperative Diagnosis: Atrial fibrillation, cardiomyopathy Postoperative Diagnosis: Sinus rhythm Procedure(s) Performed: Cardioversion Description of Procedure: This patient is a 63-year-old female who was admitted to the hospital with recurrence of atrial fibrillation. Patient is chronically anticoagulated with therapeutic INRs. Her echo showed severely impaired LV function. Patient is advised to have a cardioversion. Patient was brought to the lab in a fasting state. Anterior posterior paddles were applied. Patient was given IV sedation by department of anesthesia. Synchronized shocks of 200 followed with 300 followed 360 J shocks was applied. Patient converted to sinus rhythm after thorough shock. Tolerated the procedure well. Patient was bradycardic initially but heart rate stabilized gradually. No other complications. Final impression: #1. Successful cardioversion to sinus rhythm. #2. Mild bradycardia. Plan: Continue the anti-cognition therapy and also combination of amiodarone and beta blockers.
[2019-02-16] MEDS: MELATONIN 5 MG TABLET PO SCH (20:19)
[2019-02-16 22:09] VITALS: RESP 18
[2019-02-17 06:34] LABS: HCT 36.1 % (34.0-46.0); HGB 11.9 gm/dL (11.4-16.0); MCH 29.2 pg (25.0-35.0); MCHC 32.9 g/dL (31.0-37.0); MCV 88.7 fL (80.0-100.0); Platelet Count 149 k/uL (150-450); RBC 4.07 m/uL (3.80-5.40); RDW 13.4 % (11.5-15.5); WBC 6.7 k/uL (3.8-10.6)
[2019-02-17 06:47] LABS: Calcium 8.7 mg/dL (8.4-10.2); Potassium 3.4 mmol/L (3.5-5.1)
[2019-02-17] MEDS: FUROSEMIDE 10 MG/ML 4 ML VIAL IV SCH (08:48)
[2019-02-17] MEDS: SPIRONOLACTONE 25 MG TAB PO SCH (08:48)
[2019-02-17] MEDS: ATORVASTATIN 40 MG TAB PO SCH (08:48)
[2019-02-17] MEDS: LISINOPRIL 20 MG TAB PO SCH (08:49)
[2019-02-17] MEDS: AMIODARONE 200 MG TAB PO SCH (08:49)
[2019-02-17] MEDS: METOPROLOL TARTRATE 25 MG TAB PO SCH (08:49)
[2019-02-17 10:18] VITALS: BP 118/61; PULSE 61; TEMP 97.9
[2019-02-17 11:28] LABS: INR 2.6 (<1.2); Prothrombin Time 25.2 sec (9.0-12.0)
--- NOTE | 2019-02-17 12:33 | P.DS ---
Providers Date of admission: 02/14/19 01:45 Attending physician: Aura Penaloza Consults: 02/14/19 01:42 Consult Physician Routine Consulting Provider: Jameson Coker Consult Reason/Comments: CHF exac./ Atrial fibrillation with RVR Do you want consulting provider notified?: Yes Primary care physician: Kiran Novak Hospital Course: Patient is admitted for atrial fibrillation which is presently rate controlled in sinus rhythm. Patient is also being treated for congestive heart failure now we have an echocardiogram which showed ejection fraction of 20% her previous echo results unknown if patient the had normal EF in the past and now decreased EF then patient will need a cardiac catheterization. Patient had a tricuspid regurgitation severe pulmonary hypertension and dilated right ventricle. is severe global hypokinesis. Patient INR is therapeutic patient will be given 4 mg of Coumadin today. 02/16/2019 Patient is a INR is 2.1 patient will continued on same dose of Lasix Coumadin. Patient will undergo cardioversion today. Patient is rate controlled still in A. fib status of breath improved patient is off oxygen. Patient's ejection fraction is only 20% eventually will need cardiac catheterization dictation of which will be left to cardiology. 02/17/2019 Patient underwent underwent cardioversion, presently in sinus rhythm. INR is 2.6 patient will resume her home regimen and get her INR checked in about 2 days. She is presently euvolemic his being discharged on lisinopril and the Lasix. Patient on beta mariam and amiodarone as well. PHYSICAL EXAMINATION: GENERAL: The patient is alert and oriented x3, not in any acute distress. Well developed, well nourished. HEENT: Pupils are round and equally reacting to light. EOMI. No scleral icterus. No conjunctival pallor. Normocephalic, atraumatic. No pharyngeal erythema. No thyromegaly. CARDIOVASCULAR: S1 and S2 present. No murmurs, rubs, or gallops. PULMONARY: Chest is clear to auscultation, no wheezing or crackles. ABDOMEN: Soft, nontender, nondistended, normoactive bowel sounds. No palpable organomegaly. MUSCULOSKELETAL: No joint swelling or deformity. EXTREMITIES: No cyanosis, clubbing, or pedal edema. NEUROLOGICAL: Gross neurological examination did not reveal any focal deficits. SKIN: No rashes. Assessment and Plan Plan: -Atrial fibrillation with rapid ventricular rate, presently sinus rhythm status post cardioversion electrical -Cut his heart failure chronic systolic dysfunction with acute exacerbation -Mild elevated troponin probably secondary to A. fib with rapid ventricular rate -Hypertension -Severe pulmonary hypertension -Severe tricuspid regurgitation from pulmonary hypertension Patient Condition at Discharge: Fair Plan - Discharge Summary Discharge Rx Participant: Yes New Discharge Prescriptions: New Spironolactone [Aldactone] 25 mg PO DAILY #30 tab Amiodarone [Cordarone] 200 mg PO BID #60 tab Metoprolol Tartrate [Lopressor] 25 mg PO BID #60 tab Lisinopril [Zestril] 20 mg PO DAILY tab Continue Atorvastatin [Lipitor] 40 mg PO DAILY Warfarin [Coumadin] 2.5 mg PO TUSA Warfarin [Coumadin] 5 mg PO SUMOWETHFR Acetaminophen Tab [Tylenol] 650 mg PO Q4H PRN PRN Reason: Pain Or Fever > 100.5 Changed Furosemide [Lasix] 40 mg PO BID #60 tab Discontinued Lisinopril 40 mg PO DAILY Discharge Medication List Atorvastatin [Lipitor] 40 mg PO DAILY 01/19/16 [History] Acetaminophen Tab [Tylenol] 650 mg PO Q4H PRN 02/14/19 [History] Warfarin [Coumadin] 2.5 mg PO TUSA 02/14/19 [History] Warfarin [Coumadin] 5 mg PO SUMOWETHFR 02/14/19 [History] Amiodarone [Cordarone] 200 mg PO BID #60 tab 02/17/19 [Rx] Furosemide [Lasix] 40 mg PO BID #60 tab 02/17/19 [Rx] Lisinopril [Zestril] 20 mg PO DAILY tab 02/17/19 [Rx] Metoprolol Tartrate [Lopressor] 25 mg PO BID #60 tab 02/17/19 [Rx] Spironolactone [Aldactone] 25 mg PO DAILY #30 tab 02/17/19 [Rx] Follow up Appointment(s)/Referral(s): Kiran Novak MD [Primary Care Provider] - 3 Days (call office to make follow up appointment when office is open) Bharat Amin MD [STAFF PHYSICIAN] - 1 Week (Please call and make an appointment when office reopens.) Patient Instructions/Handouts: A-fib (Atrial Fibrillation) (GEN) Discharge Disposition: HOME SELF-CARE
[2019-02-17] MEDS: POTASSIUM CHLORIDE ER 20 MEQ TAB.ER PO SCH ×2 (12:56→13:54)
--- NOTE | 2019-02-17 14:16 | P.PN ---
Subjective Progress Note Date: 02/17/19 This is a 63-year-old female with history of paroxysmal and persistent atrial fibrillation who was admitted to the hospital with A. fib associated with severe cardiomyopathy. Patient had a cardioversion yesterday. Patient is maintaining sinus rhythm. Patient is feeling much better and energetic. Patient is being discharged home. She will go home on a combination of metoprolol and amiodarone along with anticoagulation. Patient is on combination of Coumadin and amiodarone and needs to be closely followed for INR levels. Follow-up with Dr. Amin in one week Objective - Vital Signs Vital signs: Vital Signs Temp 97.9 F 02/17/19 08:50 Pulse 61 02/17/19 08:50 Resp 18 02/17/19 08:50 BP 118/61 02/17/19 08:50 Pulse Ox 94 L 02/17/19 08:50 Intake & Output 02/16/19 02/17/19 02/17/19 18:59 06:59 18:59 Intake Total 100 354 Balance 100 354 Weight 82.1 kg Intake: IV 100 Oral 354 Other: Voiding Method Toilet Toilet Toilet # Voids 1 - Exam GENERAL EXAM: Patient is alert and oriented and doesn't appear to be in any acute distress HEENT: Normocephalic. Normal reaction of pupils, equal size, normal range of extraocular motion. No erythema or exudates in the throat. NECK: No masses, no nuchal rigidity. CHEST: No chest wall deformity. LUNGS: Equal air entry with no crackles or wheeze. HEART: S1 and S2 normal with no audible mumurs or gallops. Regular rhythm, femorals equal on both sides.. ABDOMEN: No hepatosplenomegaly, normal bowel sounds, no guarding or rigidity. SKIN: No rashes CENTRAL NERVOUS SYSTEM: No focal deficits. EXTREMITIES: No cyanosis, clubbing or edema. - Labs CBC & Chem 7: 02/17/19 05:06 02/17/19 05:06 Labs: Abnormal Lab Results - Last 24 Hours (Table) 02/17/19 02/17/19 02/17/19 Range/Units 05:06 05:06 10:35 Plt Count 149 L (150-450) k/uL PT 25.2 H (9.0-12.0) sec INR 2.6 H (<1.2) Potassium 3.4 L (3.5-5.1) mmol/L BUN 26 H (7-17) mg/dL Glucose 121 H (74-99) mg/dL Assessment and Plan (1) Atrial fibrillation with rapid ventricular response Current Visit: Yes Status: Acute Code(s): I48.91 - UNSPECIFIED ATRIAL FIBRILLATION SNOMED Code(s): 789852875903331 (2) Cardiomyopathy Current Visit: Yes Status: Acute Code(s): I42.9 - CARDIOMYOPATHY, UNSPECIF IED SNOMED Code(s): 08996360 Plan: Patient is status post cardioversion. Maintaining sinus rhythm. Being discharged home. Follow-up with Dr. Amin.
== END 2019-02-17 14:20 | disposition home or self-care (01) | DRG 308 ==
LOC: EC 00:15 → 3SCARD 01:45
PROVIDERS: ADMIT Hospitalist; ATTEND Hospitalist
PROC: 5A2204Z Restoration of Cardiac Rhythm, Single (ICD-10-PCS; principal; 2019-02-16 11:45)
DX: I48.19 Other persistent atrial fibrillation (principal); I50.23 Acute on chronic systolic (congestive) heart failure; I11.0 Hypertensive heart disease with heart failure; I27.20 Pulmonary hypertension, unspecified; I42.9 Cardiomyopathy, unspecified; I08.1 Rheumatic disorders of both mitral and tricuspid valves; M19.90 Unspecified osteoarthritis, unspecified site; R00.1 Bradycardia, unspecified; R79.1 Abnormal coagulation profile; Z79.01 Long term (current) use of anticoagulants; Z79.899 Other long term (current) drug therapy; Z86.73 Personal history of transient ischemic attack (TIA), and cerebral infarction without residual deficits; Z87.440 Personal history of urinary (tract) infections; Z98.891 History of uterine scar from previous surgery; Z98.890 Other specified postprocedural states; Z82.49 Family history of ischemic heart disease and other diseases of the circulatory system; Z80.9 Family history of malignant neoplasm, unspecified
CPT/HCPCS: 36415; 71046; 80048; 80053; 80061; 81001; 83880; 84484; 85025; 85027; 85379; 85610; 85730; 92960; 93005; 93306; 94760; 96365; 96376; 99291

== ENCOUNTER → 2019-03-02 | Outpatient (CLI) | payer MEDICARE ==
[2019-03-02 12:05] LABS: Prothrombin Time 67.2 sec (9.0-12.0)
[2019-03-02 12:06] LABS: INR 6.9 (<1.2)
== END ==
LOC: LABWHC1 10:45
PROVIDERS: ATTEND Internal Medicine Cardiovascular Disease
DX: I48.0 Paroxysmal atrial fibrillation (principal)
CPT/HCPCS: 36415; 85610

== ENCOUNTER → 2019-03-25 | Outpatient (CLI) | payer MEDICARE ==
[2019-03-25 14:41] LABS: HCT 41.3 % (34.0-46.0); HGB 13.1 gm/dL (11.4-16.0); MCH 27.2 pg (25.0-35.0); MCHC 31.7 g/dL (31.0-37.0); MCV 85.9 fL (80.0-100.0); Mean Platelet Volume 7.2; Platelet Count 151 k/uL (150-450); RBC 4.81 m/uL (3.80-5.40); WBC 6.5 k/uL (3.8-10.6)
[2019-03-25 15:00] LABS: Potassium 4.7 mmol/L (3.5-5.1)
== END | disposition home or self-care (01) ==
LOC: LABPAT 14:27
PROVIDERS: ATTEND Internal Medicine Cardiovascular Disease
DX: Z01.812 Encounter for preprocedural laboratory examination (principal); I42.0 Dilated cardiomyopathy; I48.0 Paroxysmal atrial fibrillation
CPT/HCPCS: 36415; 80051; 82565; 82947; 84520; 85027

== ENCOUNTER → 2019-04-02 | Day surgery (SDC) | payer MEDICARE ==
[2019-03-31 12:14] VITALS: BMI 30.4
[~2019-04-02] MED LIST: ALPRAZolam 0.25 MG TAB PO PRN; ALPRAZolam 0.5 MG TAB PO PRN; ASPIRIN 325 MG TAB PO ONE; ATORVASTATIN 80 MG TAB PO ONE; BENZOCAINE SPRAY 1 CAN MUCOUS MEM ONE; IOPAMIDOL-370 125ML BTL INJ ONE; LACTATED RINGERS 1,000 ML IV SCH; LIDOCAINE 1% 20 ML VIAL (10MG/ML) FOR IV START INTRADERMA PRN; LIDOCAINE 1% INJ 10MG/ML (20 ML MDV) ONE; LIDOCAINE 1% INJ 10MG/ML (20 ML MDV) SQ ONE; MIDAZOLAM 2 MG/2 ML VIAL IVP ONE; NITROGLYCERIN SL TABS 0.4 MG TAB SUBLINGUAL PRN; SODIUM CHLORIDE 0.9% 1,000 ML IV ONE; SODIUM CHLORIDE 0.9% 1,000 ML in EMPTY BAG 1 BAG IV ONE; fentaNYL (PF) 50 MCG/ML 2 ML AMP IVP ONE; fentaNYL (PF) 50 MCG/ML 2 ML AMP ONE
[2019-04-02 06:43] VITALS: TEMP 98.1
[2019-04-02 06:51] LABS: Prothrombin Time 10.3 sec (9.0-12.0)
[2019-04-02 11:08] VITALS: RESP 16
--- NOTE | 2019-04-02 11:31 | ECHOT ---
TRANSESOPHAGEAL ECHOCARDIOGRAM INDICATION: Mitral regurgitation. After obtaining informed consent, transesophageal echocardiogram is performed in left lateral position using an Omniplane probe. Local and IV sedation were obtained using Xylocaine spray, 1 mg of Versed and 50 mcg of fentanyl. The patient tolerated the procedure well without any obvious immediate complications The patient received moderate conscious sedation. Total sedation time was 10 minutes. FINDINGS: 1. Mitral Valve: Mitral valve appears anatomically normal. Mitral anulus appears dilated. There is moderate central mitral regurgitation noted. 2. Left atrium appears enlarged. 3. Right atrium and right ventricle seen within normal limits. 4. Left ventricle appears mildly dilated shows diffuse global hypokinesis with moderate LV systolic dysfunction with an ejection fraction of 35% to 40%. 5. Aortic valve is a 3-leaflet valve. There is no evidence of aortic stenosis or regurgitation. 6. Tricuspid valve shows mild tricuspid regurgitation. 7. Interatrial Septum: There is no evidence of afiz-dc-[id number] shunt by color-flow Doppler or [id number]-rv-[id number] shunt by agitated saline contrast study. 8. Aortic root appears within normal limits. CONCLUSIONS: 1. Moderate mitral regurgitation secondary to mitral annular dilatation. 2. Moderate left ventricular systolic dysfunction with diffuse global hypokinesis with an ejection fraction of around 40%. PLAN: The patient's mitral regurgitation is not bad enough to require mitral valve repair at this time. I am going to perform cardiac catheterization to rule out ischemic heart disease and if the EF does not improve over the next several months she will need an AICD. KEE / CARINAN: [id number] /
--- NOTE | 2019-04-02 12:46 | CC ---
CARDIAC CATHETERIZATION REPORT INDICATION: Cardiomyopathy with mitral regurgitation. PROCEDURE NOTE: After obtaining informed consent, cardiac catheterization was performed from the right femoral artery using standard Renetta catheters. Patient tolerated the procedure well without any obvious immediate complications. A femoral angiogram was performed and Angio-Seal was deployed for hemostasis. FINDINGS: 1. HEMODYNAMICS: Left ventricular end-diastolic pressure is 6 to 8 mm. There is no significant gradient across the aortic valve. 2. LEFT VENTRICULOGRAM: Left ventriculogram is not performed. 3. ANGIOGRAPHIC DATA: Left Main Coronary Artery: Left main coronary artery is a normal-sized vessel and is free of stenosis. Divides into left anterior descending coronary artery and circumflex coronary artery. Circumflex coronary artery and its branches are free of significant stenosis. LAD gives off a small caliber diagonal branch that shows an ostial stenosis. Right coronary artery is a large dominant vessel and is free of significant stenosis. CONCLUSION: Ostial stenosis involving a small caliber diagonal branch. PLAN: Patient's cardiomyopathy is nonischemic in etiology. Management is going to be with continued medical therapy and the patient will resume the Coumadin that she was on. If the LV systolic function does not improve over the next several months, she will need a prophylactic AICD. MMODL / IJN: [id number] /
--- NOTE | 2019-04-02 12:52 | LTR ---
April 02, 2019 Re: Faby Black Dear Dr. Novak: I performed a transesophageal echo and cardiac catheterization on Faby Black. Detailed reports are enclosed for your records. In brief, patient does not have severe mitral regurgitation and does not require mitral valve repair. Her cardiomyopathy is nonischemic in etiology and her management is going to be in the form of medical therapy. Patient may need prophylactic AICD if the LV systolic function does not improve over the next several months. Thank you for giving us the privilege to participate in the care of this pleasant lady. Sincerely, MD KEE Cohen / YO: [id number] /
[2019-04-02 16:56] VITALS: BP 103/56; PULSE 55
== END ==
LOC: CATHCVL 05:57
PROVIDERS: ATTEND Internal Medicine Cardiovascular Disease
DX: I25.10 Atherosclerotic heart disease of native coronary artery without angina pectoris (principal); I08.1 Rheumatic disorders of both mitral and tricuspid valves; I42.0 Dilated cardiomyopathy; I48.0 Paroxysmal atrial fibrillation; I10 Essential (primary) hypertension; E78.2 Mixed hyperlipidemia; Z79.01 Long term (current) use of anticoagulants; Z79.899 Other long term (current) drug therapy; Z86.73 Personal history of transient ischemic attack (TIA), and cerebral infarction without residual deficits; Z82.49 Family history of ischemic heart disease and other diseases of the circulatory system
CPT/HCPCS: 93458; 93312; 93320; 93325; 85610; C1760; C1769; J2250; J2001; J3010; Q9967

== ENCOUNTER → 2019-08-04 | Outpatient (CLI) | payer MEDICARE ==
[2019-08-05 04:38] LABS: Anion Gap 7.7 mmol/L (4.00-12.00); BUN/Creat Ratio 15.67 Ratio (12.00-20.00); Calcium 9.1 mg/dL (8.7-10.3); Carbon Dioxide 26.3 mmol/L (21.6-31.8); Non-African American GFR(CKD) 15.5 (60.0-200.0); Potassium 4.7 mmol/L (3.5-5.5)
== END | disposition home or self-care (01) ==
LOC: LABWHC1 14:26
PROVIDERS: ATTEND Internal Medicine Cardiovascular Disease
DX: I50.22 Chronic systolic (congestive) heart failure (principal)
CPT/HCPCS: 36415; 80048; 83880; 84443

== ENCOUNTER 2022-11-20 16:03 | Inpatient (IN) | payer MEDICARE ==
--- NOTE | 2022-11-20 16:22 | ED ---
Arrhythmia/Palpitations HPI - General Source: patient Mode of arrival: ambulatory Limitations: no limitations <Opal Irving - Last Filed: 11/20/22 16:22> <Viki Fry - Last Filed: 11/20/22 19:27> - General Chief Complaint: Arrhythmia/Palpitations Stated Complaint: High heart rate,uti Time Seen by Provider: 11/20/22 16:22 - History of Present Illness Initial Comments: 67-year-old female sent in by Dr. Amin for A. fib RVR. (Opal Irving) The patient is a history of hypertension, age or fibrillation, renal failure and recurrent UTIs presents emergency room for A. fib RVR. Patient was at a routine cardiology appointment and her heart rate was in the 140 to 150s. She was sent here for further management. Patient does have a history of A. fib but is bid out of A. fib for about 3-4 years. She had an ablation in 2019 which converted her to normal sinus rhythm. She had been on metoprolol however it had been making her very tired so she was taken off of it. She is not on any anti- arrhythmia medication at this time however Dr. Amin her net wpf developer's wrote for her to restart her metoprolol when she is discharged from the hospital. Patient states she may have felt more short of breath over the last few days but has no significant complaints except for urinary symptoms. Patient complains of urinary frequency and dysuria for the last month. She has not seen for this. She denies any vomiting or fever. Patient denies any cough, mild congestion, hemoptysis or swelling to the lower extremities. she was unaware she was in afib. (Viki Fry) - Related Data Home Medications Medication Instructions Recorded Confirmed Atorvastatin [Lipitor] 40 mg PO DAILY 01/19/16 11/20/22 Apixaban [Eliquis] 5 mg PO BID 11/20/22 11/20/22 Cholecalciferol [Vitamin D3 (25 25 mcg PO DAILY 11/20/22 11/20/22 Mcg = 1000 Iu)] Furosemide [Lasix] 20 mg PO DAILY 11/20/22 11/20/22 amLODIPine [Norvasc] 5 mg PO DAILY 11/20/22 11/20/22 Previous Rx's Medication Instructions Recorded lisinopriL [Zestril] 20 mg PO DAILY tab 02/17/19 Allergies Allergy/AdvReac Type Severity Reaction Status Date / Time No Known Allergies Allergy Verified 11/20/22 18:44 Review of Systems ROS Other: All systems not noted in ROS Statement are negative. <Opal Irving - Last Filed: 11/20/22 16:22> ROS Other: All systems not noted in ROS Statement are negative. <Viki Fry - Last Filed: 11/20/22 19:27> ROS Statement: Those systems with pertinent positive or pertinent negative responses have been documented in the HPI. Past Medical History Past Medical History: Atrial Fibrillation, Heart Failure, CVA/TIA, Hypertension Additional Past Medical History / Comment(s): TIA, BRONCHITIS, UTI'S,ARHTRITIS, ANEMIA WHEN SHE WAS , STRESS TEST(WNL) PT PUT HER SELF ON LOW CARB DIET AND LOST 40 POUNDS IN A YEAR. BROKE RT HAND D/T A FALL JUST GOT CAST OFF 3 DAYS AGO,OFF WORK FOR PT.PAST CHF(2013), PT ON COUMADIN FOR AFIB. History of Any Multi-Drug Resistant Organisms: None Reported Past Surgical History: Section Additional Past Surgical History / Comment(s): X3, TUMMY TUCK Past Anesthesia/Blood Transfusion Reactions: Motion Sickness Past Psychological History: No Psychological Hx Reported Past Alcohol Use History: None Reported - Past Family History Father Family Medical History: CVA/TIA, Myocardial Infarction ([place]) Additional Family Medical History / Comment(s): PACEMAKER Mother Family Medical History: Cancer Additional Family Medical History / Comment(s): LYMPHOMA <Opal Irving - Last Filed: 11/20/22 16:22> General Exam Limitations: no limitations <Opal Irving - Last Filed: 11/20/22 16:22> Limitations: no limitations General appearance: alert, in no apparent distress Head exam: Present: atraumatic Eye exam: Present: normal appearance ENT exam: Present: normal exam Neck exam: Present: normal inspection Respiratory exam: Present: normal lung sounds bilaterally Cardiovascular Exam: Present: tachycardia, irregular rhythm GI/Abdominal exam: Present: soft, other (Nondistended no significant tenderness) Extremities exam: Present: full ROM Back exam: Present: full ROM Neurological exam: Present: alert, oriented X3, CN II-XII intact Psychiatric exam: Present: normal affect, normal mood Skin exam: Present: warm, dry <Viki Fry - Last Filed: 11/20/22 19:27> Course <Viki Fry - Last Filed: 11/20/22 19:27> Vital Signs 11/20/22 11/20/22 11/20/22 16:16 17:15 17:30 Temperature 98.4 F Pulse Rate 137 H 92 94 Respiratory 20 20 19 Rate Blood Pressure 136/96 125/96 126/104 O2 Sat by Pulse 98 97 99 Oximetry 11/20/22 11/20/22 11/20/22 17:45 18:00 18:15 Temperature Pulse Rate 98 99 102 H Respiratory 20 20 20 Rate Blood Pressure 131/95 143/86 148/95 O2 Sat by Pulse 98 98 97 Oximetry - Reevaluation(s) Reevaluation #1: 11/20/22 1856 Reevaluation patient's heart rate is much improved below 100 on the Cardizem drip. She was started on Rocephin for the urinary tract infection. I discussed admission plan with the patient. Patient will be admitted for cardiac management of the A. fib RVR as she is restarted on metoprolol as an outpatient. We will continue Eliquis which the patient is on [had been switched from warfarin] (Viki Fry) EKG Findings - EKG Comments: EKG Findings:: EKG completed at 1625 shows a history of fibrillation with RVR rate at [address] segment elevation <Viki Fry - Last Filed: 11/20/22 19:27> Medical Decision Making - Lab Data Result diagrams: 11/20/22 16:57 11/20/22 16:57 - EKG Data -: EKG Interpreted by Me - Radiology Data Radiology results: report reviewed, image reviewed <Viki Fry - Last Filed: 11/20/22 19:27> - Medical Decision Making Was pt. sent in by a medical professional or institution (, PA, BULLET SWAGING MACHINE ADJUSTER, urgent care, hospital, or long-term...) When possible be specific @ -Patient sent in by her net wpf developer Dr. Amin for further evaluation of the A. fib RVR Did you speak to anyone other than the patient for history (EMS, parent, family, police, friend...)? What history was obtained from this source @ -[No] Did you review nursing and triage notes (agree or disagree)? Why? @ -[I reviewed and agree with nursing and triage notes] Were old charts reviewed (outside hosp., previous admission, EMS record, old EKG, old radiological studies, urgent care reports/EKG's, long-term records)? Report findings @ -Yes old charts were reviewed Differential Diagnosis (chest pain, altered mental status, abdominal pain women, abdominal pain men, vaginal bleeding, weakness, fever, dyspnea, syncope, headache, dizziness, GI bleed, back pain, seizure, CVA, palpatations, mental health, musculoskeletal)? @ -A. fib RVR, urinary tract infection EKG interpreted by me (3pts min.). @ -EKG shows atrial fibrillation RVR rate of [address] segment elevation X-rays interpreted by me (1pt min.). @ -Chest x-ray is negative for any obvious pneumonia and pneumothorax or other acute changes. CT interpreted by me (1pt min.). @ -[None done] U/S interpreted by me (1pt. min.). @ -[None done] What testing was considered but not performed or refused? (CT, X-rays, U/S, labs)? Why? @ -[None] What meds were considered but not given or refused? Why? @ -[None] Did you discuss the management of the patient with other professionals (professionals i.e. DrDelio, PA, BULLET SWAGING MACHINE ADJUSTER, lab, RT, psych nurse, older adult social work specialist, quarter seamer, teacher, regulatory compliance officer, case sealer)? Give summary @ -I discussed patient's symptoms are And management with attending ED physician Dr. Quezada today. I also spoke with the admitting physician patient's PCP Dr. Kiran Novak regarding her ED visit and admission for A. fib RVR. He will continue further management and consultations. Was smoking cessation discussed for >3mins.? @ -[No] Was critical care preformed (if so, how long)? @ -[No] Were there social determinants of health that impacted care today? How? (Homelessness, low income, unemployed, alcoholism, drug addiction, transportation, low edu. Level, literacy, decrease access to med. care, fpc, rehab)? @ -[No] Was there de-escalation of care discussed even if they declined (Discuss DNR or withdrawal of care, Hospice)? DNR status @ -[No] What co-morbidities impacted this encounter? (DM, HTN, Smoking, COPD, CAD, Cancer, CVA, ARF, Chemo, Hep., AIDS, mental health diagnosis, sleep apnea, morbid obesity)? @ - history of A. fib and urinary tract infections Was patient admitted / discharged? Hospital course, mention meds given and route, prescriptions, significant lab abnormalities, going to OR and other pertinent info. @ -[Be admitted for further evaluation and management of the A. fib RVR and urinary tract infection Undiagnosed new problem with uncertain prognosis? @ -[No] Drug Therapy requiring intensive monitoring for toxicity (Heparin, Nitro, Insulin, Cardizem)? @ -[Patient on Cardizem drip Were any procedures done? @ -[No] Diagnosis/symptom? @ -[A. fib RVR, urinary tract infection Acute, or Chronic, or Acute on Chronic? @ -[Acute Uncomplicated (without systemic symptoms) or Complicated (systemic symptoms)? @ -[default] Side effects of treatment? @ -[No] Exacerbation, Progression, or Severe Exacerbation? @ -[No] Poses a threat to life or bodily function? How? (Chest pain, [place], [place], pneumonia, PE, COPD, DKA, ARF, appy, cholecystitis, CVA, Diverticulitis, Homicidal, Suicidal, threat to staff... and all critical care pts) @ -[No] (Viki Fry) - Lab Data Lab Results 11/20/22 11/20/22 11/20/22 Range/Units 16:57 16:57 16:57 WBC 6.9 (3.8-10.6) k/uL RBC 5.17 (3.80-5.40) m/uL Hgb 14.9 (11.4-16.0) gm/dL Hct 45.3 (34.0-46.0) % MCV 87.7 (80.0-100.0) fL MCH 28.9 (25.0-35.0) pg MCHC 33.0 (31.0-37.0) g/dL RDW 14.4 (11.5-15.5) % Plt Count 157 (150-450) k/uL MPV 7.5 Neutrophils % 67 % Lymphocytes % 26 % Monocytes % 4 % Eosinophils % 2 % Basophils % 1 % Neutrophils # 4.6 (1.3-7.7) k/uL Lymphocytes # 1.8 (1.0-4.8) k/uL Monocytes # 0.3 (0-1.0) k/uL Eosinophils # 0.1 (0-0.7) k/uL Basophils # 0.0 (0-0.2) k/uL PT 10.6 (9.0-12.0) sec INR 1.0 (<1.2) APTT 24.0 (22.0-30.0) sec Sodium 140 (137-145) mmol/L Potassium 5.0 (3.5-5.1) mmol/L Chloride 107 (98-107) mmol/L Carbon Dioxide 25 (22-30) mmol/L Anion Gap 8 mmol/L BUN 19 H (7-17) mg/dL Creatinine 1.20 H (0.52-1.04) mg/dL Est GFR (CKD-EPI)AfAm 53 (>60 ml/min/1.73 sqM) Est GFR (CKD-EPI)NonAf 46 (>60 ml/min/1.73 sqM) Glucose 115 H (74-99) mg/dL Calcium 9.6 (8.4-10.2) mg/dL Magnesium 2.0 (1.6-2.3) mg/dL Total Bilirubin 1.4 H (0.2-1.3) mg/dL AST 36 (14-36) U/L ALT 22 (4-34) U/L Alkaline Phosphatase 111 (38-126) U/L Troponin I (0.000-0.034) ng/mL Total Protein 7.5 (6.3-8.2) g/dL Albumin 4.6 (3.5-5.0) g/dL Urine Color Urine Appearance (Clear) Urine pH (5.0-8.0) Ur Specific [place] (1.001-1.035) Urine Protein (Negative) Urine Glucose (UA) (Negative) Urine Ketones (Negative) Urine Blood (Negative) Urine Nitrite (Negative) Urine Bilirubin (Negative) Urine Urobilinogen (<2.0) mg/dL Ur Leukocyte Esterase (Negative) Urine RBC (0-5) /hpf Urine WBC (0-5) /hpf Ur Squamous Epith Cells (0-4) /hpf Amorphous Sediment (None) /hpf Urine Bacteria (None) /hpf Hyaline Casts (0-2) /lpf Urine Mucus (None) /hpf 11/20/22 11/20/22 Range/Units 16:57 17:58 WBC (3.8-10.6) k/uL RBC (3.80-5.40) m/uL Hgb (11.4-16.0) gm/dL Hct (34.0-46.0) % MCV (80.0-100.0) fL MCH (25.0-35.0) pg MCHC (31.0-37.0) g/dL RDW (11.5-15.5) % Plt Count (150-450) k/uL MPV Neutrophils % % Lymphocytes % % Monocytes % % Eosinophils % % Basophils % % Neutrophils # (1.3-7.7) k/uL Lymphocytes # (1.0-4.8) k/uL Monocytes # (0-1.0) k/uL Eosinophils # (0-0.7) k/uL Basophils # (0-0.2) k/uL PT (9.0-12.0) sec INR (<1.2) APTT (22.0-30.0) sec Sodium (137-145) mmol/L Potassium (3.5-5.1) mmol/L Chloride (98-107) mmol/L Carbon Dioxide (22-30) mmol/L Anion Gap mmol/L BUN (7-17) mg/dL Creatinine (0.52-1.04) mg/dL Est GFR (CKD-EPI)AfAm (>60 ml/min/1.73 sqM) Est GFR (CKD-EPI)NonAf (>60 ml/min/1.73 sqM) Glucose (74-99) mg/dL Calcium (8.4-10.2) mg/dL Magnesium (1.6-2.3) mg/dL Total Bilirubin (0.2-1.3) mg/dL AST (14-36) U/L ALT (4-34) U/L Alkaline Phosphatase (38-126) U/L Troponin I <0.012 (0.000-0.034) ng/mL Total Protein (6.3-8.2) g/dL Albumin (3.5-5.0) g/dL Urine Color Yellow Urine Appearance Cloudy H (Clear) Urine pH 7.0 (5.0-8.0) Ur Specific [place] 1.015 (1.001-1.035) Urine Protein 1+ H (Negative) Urine Glucose (UA) Negative (Negative) Urine Ketones Negative (Negative) Urine Blood Negative (Negative) Urine Nitrite Positive H (Negative) Urine Bilirubin Negative (Negative) Urine Urobilinogen <2.0 (<2.0) mg/dL Ur Leukocyte Esterase Small H (Negative) Urine RBC 3 (0-5) /hpf Urine WBC 13 H (0-5) /hpf Ur Squamous Epith Cells 2 (0-4) /hpf Amorphous Sediment Occasional H (None) /hpf Urine Bacteria Many H (None) /hpf Hyaline Casts 1 (0-2) /lpf Urine Mucus Occasional H (None) /hpf Disposition <Opal Irving - Last Filed: 11/20/22 16:22> Decision Time: 18:54 <Viki Fry - Last Filed: 11/20/22 19:27> Clinical Impression: Atrial fibrillation, Atrial fibrillation with rapid ventricular response, UTI (urinary tract infection), Renal insufficiency Disposition: ADMITTED IP TO THIS HOSP Condition: Good Referrals: Kiran Novak MD [Primary Care Provider] - 1-2 days
[2022-11-20] MEDS ORDERED: SODIUM CHLORIDE 0.9% 1,000 ML IV STA (16:51)
[2022-11-20] MEDS ORDERED: DILTIAZEM DRIP BOLUS FROM BAG 1 MG SOLN IV ONE (16:51)
[2022-11-20 17:11] LABS: Basophils % (A) 1 %; Eosinophils # (A) 0.1 k/uL (0-0.7); Eosinophils % (A) 2 %; HCT 45.3 % (34.0-46.0); HGB 14.9 gm/dL (11.4-16.0); Lymphocytes # (A) 1.8 k/uL (1.0-4.8); Lymphocytes % (A) 26 %; MCH 28.9 pg (25.0-35.0); MCV 87.7 fL (80.0-100.0); Mean Platelet Volume 7.5; Monocytes # (A) 0.3 k/uL (0-1.0); Monocytes % (A) 4 %; Neutrophils # (A) 4.6 k/uL (1.3-7.7); Neutrophils % (A) 67 %; Platelet Count 157 k/uL (150-450); RBC 5.17 m/uL (3.80-5.40); RDW 14.4 % (11.5-15.5); WBC 6.9 k/uL (3.8-10.6)
[2022-11-20 17:25] LABS: ALT 22 U/L (4-34); African American GFR (CKD) 53 (>60 ml/min/1.73 sqM); Albumin 4.6 g/dL (3.5-5.0); Anion Gap 8 mmol/L; Blood Urea Nitrogen 19 mg/dL (7-17); Calcium 9.6 mg/dL (8.4-10.2); Carbon Dioxide 25 mmol/L (22-30); Chloride 107 mmol/L (98-107); Glucose 115 mg/dL (74-99); Non-African American GFR(CKD) 46 (>60 ml/min/1.73 sqM); Sodium 140 mmol/L (137-145); Total Bilirubin 1.4 mg/dL (0.2-1.3); Total Protein 7.5 g/dL (6.3-8.2)
[2022-11-20 17:27] LABS: Prothrombin Time 10.6 sec (9.0-12.0)
[2022-11-20 17:29] LABS: AST 36 U/L (14-36); Alkaline Phosphatase 111 U/L (38-126)
[2022-11-20] MEDS ORDERED: DILTIAZEM 125 MG in SODIUM CHLORIDE 0.9% 100 ML IV SCH (17:30)
--- NOTE | 2022-11-20 17:44 | XR ---
EXAMINATION TYPE: XR chest 2V DATE OF EXAM: 11/20/2022 COMPARISON: 02/14/2019 INDICATION: Chest pain TECHNIQUE: Frontal and lateral views of the chest are obtained. FINDINGS: The heart size is borderline prominent. The pulmonary vasculature is normal. The lungs are clear. IMPRESSION: 1. No acute pulmonary process.
[2022-11-20 18:19] LABS: Amorphous Sediment,Urine Occasional /hpf; Appearance,Urine Cloudy (Clear); Bacteria,Urine Many /hpf; Bilirubin,Urine Negative (Negative); Blood,Urine Negative (Negative); Color,Urine Yellow; Glucose,Urine (UA) Negative (Negative); Hyaline Casts,Urine 1 /lpf (0-2); Ketones,Urine Negative (Negative); Leukocyte Esterase,Urine Small (Negative); Mucus,Urine Occasional /hpf; Nitrite,Urine Positive (Negative); Protein,Urine 1+ (Negative); RBC,Urine 3 /hpf (0-5); Specific Gravity,Urine 1.015 (1.001-1.035); Squamous Epithelial Cell,Urine 2 /hpf (0-4); Urobilinogen,Urine <2.0 mg/dL (<2.0); WBC,Urine 13 /hpf (0-5)
[2022-11-20] MEDS ORDERED: cefTRIAXone IN SWFI 1,000 MG/10 ML SYRINGE IVP STA (18:21)
[2022-11-20] MEDS ORDERED: NALOXONE 0.4 MG/ML 1 ML VIAL IV PRN (18:51)
[2022-11-20] MEDS: SODIUM CHLORIDE 0.9% 1,000 ML IV SCH (20:47)
[2022-11-20] MEDS: APIXABAN 5 MG TAB PO SCH (20:50)
[2022-11-20] MEDS ORDERED: METOPROLOL TARTRATE 25 MG TAB PO SCH (21:00)
[2022-11-20] MEDS ORDERED: cefTRIAXone 1,000 MG VIAL (IM USE) IM SCH (21:00)
[2022-11-21 06:44] LABS: Basophils % (A) 0 %; Eosinophils # (A) 0.1 k/uL (0-0.7); Eosinophils % (A) 2 %; HGB 12.9 gm/dL (11.4-16.0); Lymphocytes # (A) 1.7 k/uL (1.0-4.8); Lymphocytes % (A) 31 %; MCH 29.3 pg (25.0-35.0); MCHC 33.1 g/dL (31.0-37.0); MCV 88.5 fL (80.0-100.0); Mean Platelet Volume 7.9; Monocytes # (A) 0.3 k/uL (0-1.0); Monocytes % (A) 6 %; Neutrophils # (A) 3.3 k/uL (1.3-7.7); Neutrophils % (A) 60 %; Platelet Count 138 k/uL (150-450); RBC 4.41 m/uL (3.80-5.40); RDW 14.5 % (11.5-15.5); WBC 5.5 k/uL (3.8-10.6)
[2022-11-21 07:16] LABS: African American GFR (CKD) 65 (>60 ml/min/1.73 sqM); Anion Gap 8 mmol/L; Blood Urea Nitrogen 15 mg/dL (7-17); Calcium 9.2 mg/dL (8.4-10.2); Carbon Dioxide 20 mmol/L (22-30); Chloride 111 mmol/L (98-107); Glucose 80 mg/dL (74-99); Non-African American GFR(CKD) 57 (>60 ml/min/1.73 sqM); Sodium 139 mmol/L (137-145)
--- NOTE | 2022-11-21 08:45 | P.HPIM ---
History of Present Illness H&P Date: 11/21/22 Chief Complaint: Atrial fibrillation This is a 67-year-old female who was sent over from cardiology yesterday because her heart rate was in the 140 to 150s. She does have a history of atrial fibrillation, underwent a cardioversion in 2019 which converted her to sinus rhythm. She's previously been on metoprolol however it made her very tired so she discontinued it. She has still been on Eliquis. Patient was found to be in atrial fibrillation with RVR on admission, she was started on a Cardizem drip. Cardiology has been consulted, they are planning on discontinuing Cardizem drip and starting metoprolol 100 mg twice a day. Patient also reported urinary frequency and dysuria for the last month, she is positive for UTI. Remains on Rocephin. Review of Systems Constitutional: Denies chills, Denies fever Cardiovascular: Denies chest pain, Denies dyspnea on exertion Respiratory: Denies cough, Denies dyspnea Gastrointestinal: Denies nausea, Denies vomiting Genitourinary: Reports dysuria, Reports urinary frequency Musculoskeletal: Denies arm numbness/tingling, Denies leg numbness/tingling Neurological: Denies headaches, Denies weakness Past Medical History Past Medical History: Atrial Fibrillation, Heart Failure, CVA/TIA, Hypertension Additional Past Medical History / Comment(s): TIA, BRONCHITIS, UTI'S,ARHTRITIS, ANEMIA WHEN SHE WAS , STRESS TEST(WNL) PT PUT HER SELF ON LOW CARB DIET AND LOST 40 POUNDS IN A YEAR. BROKE RT HAND D/T A FALL JUST GOT CAST OFF 3 DAYS AGO,OFF WORK FOR PT.PAST CHF(2013), PT ON COUMADIN FOR AFIB. History of Any Multi-Drug Resistant Organisms: None Reported Past Surgical History: Section Additional Past Surgical History / Comment(s): X3, TUMMY TUCK Past Anesthesia/Blood Transfusion Reactions: Motion Sickness Past Psychological History: No Psychological Hx Reported Past Alcohol Use History: None Reported - Past Family History Father Family Medical History: CVA/TIA, Myocardial Infarction ([place]) Additional Family Medical History / Comment(s): PACEMAKER Mother Family Medical History: Cancer Additional Family Medical History / Comment(s): LYMPHOMA Medications and Allergies Home Medications Medication Instructions Recorded Confirmed Type Atorvastatin [Lipitor] 40 mg PO DAILY 01/19/16 11/20/22 History lisinopriL [Zestril] 20 mg PO DAILY tab 02/17/19 11/20/22 Rx Apixaban [Eliquis] 5 mg PO BID 11/20/22 11/20/22 History Cholecalciferol [Vitamin D3 (25 25 mcg PO DAILY 11/20/22 11/20/22 History Mcg = 1000 Iu)] Furosemide [Lasix] 20 mg PO DAILY 11/20/22 11/20/22 History amLODIPine [Norvasc] 5 mg PO DAILY 11/20/22 11/20/22 History Allergies Allergy/AdvReac Type Severity Reaction Status Date / Time No Known Allergies Allergy Verified 11/20/22 18:44 Physical Exam Vitals: Vital Signs Temp Pulse Resp BP Pulse Ox 11/21/22 07:36 98.2 F 89 18 137/89 98 11/21/22 06:02 98 F 78 14 112/99 97 11/21/22 02:00 75 20 137/83 98 11/21/22 01:00 71 23 140/98 97 11/21/22 00:00 82 18 135/90 98 11/20/22 23:00 79 20 131/76 97 11/20/22 22:26 60 16 131/76 97 11/20/22 22:00 65 18 128/82 97 11/20/22 21:00 90 20 144/100 97 11/20/22 20:27 97.5 F L 116 H 16 144/100 98 11/20/22 18:15 102 H 20 148/95 97 11/20/22 18:00 99 20 143/86 98 11/20/22 17:45 98 20 131/95 98 11/20/22 17:30 94 19 126/104 99 11/20/22 17:15 92 20 125/96 97 11/20/22 16:16 98.4 F 137 H 20 136/96 98 Intake and Output 11/20/22 11/21/22 11/21/22 22:59 06:59 14:59 Other: Weight 79.379 kg - Constitutional General appearance: cooperative, no acute distress - EENT Eyes: PERRLA - Neck Neck: no lymphadenopathy, normal ROM, no rigidity - Respiratory Respiratory: bilateral: CTA - Cardiovascular Rhythm: irregularly irregular - Gastrointestinal General gastrointestinal: soft, no tenderness - Integumentary Integumentary: normal, normal turgor - Psychiatric Psychiatric: A&O x's 3, appropriate affect, intact judgment & insight Results CBC & Chem 7: 11/21/22 05:45 11/21/22 05:45 Labs: Abnormal Lab Results - Last 24 Hours (Table) 11/20/22 11/20/22 11/21/22 Range/Units 16:57 17:58 05:45 Plt Count 138 L (150-450) k/uL Chloride (98-107) mmol/L Carbon Dioxide (22-30) mmol/L BUN 19 H (7-17) mg/dL Creatinine 1.20 H (0.52-1.04) mg/dL Glucose 115 H (74-99) mg/dL Total Bilirubin 1.4 H (0.2-1.3) mg/dL Urine Appearance Cloudy H (Clear) Urine Protein 1+ H (Negative) Urine Nitrite Positive H (Negative) Ur Leukocyte Esterase Small H (Negative) Urine WBC 13 H (0-5) /hpf Amorphous Sediment Occasional H (None) /hpf Urine Bacteria Many H (None) /hpf Urine Mucus Occasional H (None) /hpf 11/21/22 Range/Units 05:45 Plt Count (150-450) k/uL Chloride 111 H (98-107) mmol/L Carbon Dioxide 20 L (22-30) mmol/L BUN (7-17) mg/dL Creatinine (0.52-1.04) mg/dL Glucose (74-99) mg/dL Total Bilirubin (0.2-1.3) mg/dL Urine Appearance (Clear) Urine Protein (Negative) Urine Nitrite (Negative) Ur Leukocyte Esterase (Negative) Urine WBC (0-5) /hpf Amorphous Sediment (None) /hpf Urine Bacteria (None) /hpf Urine Mucus (None) /hpf Assessment and Plan (1) Atrial fibrillation Current Visit: Yes Status: Acute Code(s): I48.91 - UNSPECIFIED ATRIAL FIBRILLATION SNOMED Code(s): 85601333 (2) UTI (urinary tract infection) Current Visit: Yes Status: Acute Code(s): N39.0 - URINARY TRACT INFECTION, SITE NOT SPECIFIED SNOMED Code(s): 73869526 (3) Hypertension Current Visit: Yes Status: Acute Code(s): I10 - ESSENTIAL (PRIMARY) HYPERTENSION SNOMED Code(s): 70585962 Plan: Appreciate cardiology input. Restart home meds of Lipitor and lisinopril Continue Rocephin Patient seen and evaluated by nurse practitioner, physician in agreement with plan
[2022-11-21] MEDS: lisinopriL 20 MG TAB PO SCH (08:56)
[2022-11-21] MEDS: APIXABAN 5 MG TAB PO SCH ×2 (08:56→20:43)
[2022-11-21] MEDS: METOPROLOL TARTRATE 50 MG TAB PO SCH ×3 (08:56→20:43)
[2022-11-21] MEDS: ATORVASTATIN 40 MG TAB PO SCH (08:57)
[2022-11-21] MEDS: SODIUM CHLORIDE 0.9% 1,000 ML IV SCH ×2 (10:36→20:43)
--- NOTE | 2022-11-21 12:48 | P.CRDCN ---
History of Present Illness Consult date: 11/21/22 Consult reason: atrial fibrillation (With RVR) History of present illness: History of present illness: This is a 67-year-old female patient of Dr. Anay Amin with past medical history of paroxysmal atrial fibrillation, moderate mitral regurgitation, hypertension, dyslipidemia. We have been asked to evaluate the patient for A. fib with RVR. Patient was last seen in the office on 11/20 and she was found to be in atrial fibrillation with poorly controlled ventricular rate. She was also being treated for cystitis and presented with palpitations. Patient was sent into the emergency center for rate control and possible cardioversion. Patient states that she is feeling tired. 2 days ago she was a little short of breath but she does have some chronic shortness of breath but seems to be a little bit worse. She continues to feel tired. Her heart rate is at 1 20 bpm. She has not been started on Cardizem drip. Patient is seen in the emergency center waiting for a bed on the cardiac stepdown unit. EKG atrial fibrillation at a ventricular rate of 151, Telemetry atrial fibrillation at 120 bpm Chest x-ray: No acute process WBC 5.5, hemoglobin 12.9, platelet count 138. INR 1. Sodium 139, potassium 4, chloride 111, CO2 20, BUN initially 19 and creatinine 1. 2 repeat of 15 and 1.02. TSH 1.85. Liver function tests are normal. Troponin negative 1. Urinalysis positive for UTI. Home cardiac medications: Amlodipine 5 mg daily, eliquis 5 mg twice daily, Lipitor 40 mg daily, Lasix 20 mg daily, lisinopril 20 mg daily. Echocardiogram performed 02/2022 revealed EF 50-55%. Small hypokinetic area on the inferior wall at the base. Mild concentric left ventricular hypertrophy. Severely dilated left atrium. Trace aortic regurgitation. Moderate mitral regurgitation, moderate tricuspid regurgitation, PAS P 41 mmHg. Review Of Systems: At the time of my evaluation: Constitutional: No fever, no chills. No weakness, +fatigue no lethargy. EENT: No headache. No dizziness. Lungs: No shortness of breath, cough, no sputum production. No wheezing. Cardiovascular: No chest pain, no lower extremity edema. No palpitations. No paroxysmal nocturnal dyspnea. No orthopnea. No lightheadedness or dizziness. No syncopal episodes. Abdominal: No abdominal pain. No nausea, vomiting. Musculoskeletal: No myalgias. No muscle weakness, no frequent falls. Integumentary: No wounds. No rash. No unusual bruising. Neurologic: No aphasia. No facial droop. No change in mentation. Physical examination: Gen: This is a 67-year-old female. She is resting on ER stretcher. She appears to be in no acute distress. VS: reviewed HEENT: Head is atraumatic, normocephalic. Pupils equal, round. Sclerae is anicteric. NECK: Supple. No JVD. . LUNGS: Clear to auscultation. No wheezes or rhonchi. No intercostal retractions. HEART: Irregularrate and rhythm. No murmur. ABDOMEN: Soft No tenderness. EXTREMITIES: No pedal edema. No calf tenderness. NEUROLOGICAL: Patient is awake, alert and oriented x3. Assessment: Atrial fibrillation with RVR, paroxysmal atrial fibrillation Moderate mitral regurgitation Hypertension Dyslipidemia Plan: Start patient on Lopressor 100 mg twice daily No need to obtain echocardiogram at this time Monitor patient closely, if she continues to have A. fib uncontrolled, may schedule for cardioversion. Would like to wait 1-2 days due to infection. Further recommendations to follow based upon clinical course Thank you kindly for this consultation. Nurse practitioner note has been reviewed, I agree with documented findings and plan of care. Patient was seen and examined. Past Medical History Past Medical History: Atrial Fibrillation, Heart Failure, CVA/TIA, Hypertension Additional Past Medical History / Comment(s): TIA, BRONCHITIS, UTI'S,ARHTRITIS, ANEMIA WHEN SHE WAS , STRESS TEST(WNL) PT PUT HER SELF ON LOW CARB DIET AND LOST 40 POUNDS IN A YEAR. BROKE RT HAND D/T A FALL JUST GOT CAST OFF 3 DAYS AGO,OFF WORK FOR PT.PAST CHF(2013), PT ON COUMADIN FOR AFIB. History of Any Multi-Drug Resistant Organisms: None Reported Past Surgical History: Section Additional Past Surgical History / Comment(s): X3, TUMMY TUCK Past Anesthesia/Blood Transfusion Reactions: Motion Sickness Past Psychological History: No Psychological Hx Reported Past Alcohol Use History: None Reported - Past Family History Father Family Medical History: CVA/TIA, Myocardial Infarction ([place]) Additional Family Medical History / Comment(s): PACEMAKER Mother Family Medical History: Cancer Additional Family Medical History / Comment(s): LYMPHOMA Medications and Allergies Home Medications Medication Instructions Recorded Confirmed Type Atorvastatin [Lipitor] 40 mg PO DAILY 01/19/16 11/20/22 History lisinopriL [Zestril] 20 mg PO DAILY tab 02/17/19 11/20/22 Rx Apixaban [Eliquis] 5 mg PO BID 11/20/22 11/20/22 History Cholecalciferol [Vitamin D3 (25 25 mcg PO DAILY 11/20/22 11/20/22 History Mcg = 1000 Iu)] Furosemide [Lasix] 20 mg PO DAILY 11/20/22 11/20/22 History amLODIPine [Norvasc] 5 mg PO DAILY 11/20/22 11/20/22 History Allergies Allergy/AdvReac Type Severity Reaction Status Date / Time No Known Allergies Allergy Verified 11/20/22 18:44 Physical Exam Vitals: Vital Signs Temp Pulse Resp BP Pulse Ox 11/21/22 07:36 98.2 F 89 18 137/89 98 11/21/22 06:02 98 F 78 14 112/99 97 11/21/22 02:00 75 20 137/83 98 11/21/22 01:00 71 23 140/98 97 11/21/22 00:00 82 18 135/90 98 11/20/22 23:00 79 20 131/76 97 11/20/22 22:26 60 16 131/76 97 11/20/22 22:00 65 18 128/82 97 11/20/22 21:00 90 20 144/100 97 11/20/22 20:27 97.5 F L 116 H 16 144/100 98 11/20/22 18:15 102 H 20 148/95 97 11/20/22 18:00 99 20 143/86 98 11/20/22 17:45 98 20 131/95 98 11/20/22 17:30 94 19 126/104 99 11/20/22 17:15 92 20 125/96 97 11/20/22 16:16 98.4 F 137 H 20 136/96 98 Intake and Output 11/20/22 11/21/22 11/21/22 22:59 06:59 14:59 Other: Weight 79.379 kg Results 11/21/22 05:45 09/28/23 05:45 Cardiac Enzymes 11/20/22 11/20/22 Range/Units 16:57 16:57 AST 36 (14-36) U/L Troponin I <0.012 (0.000-0.034) ng/mL Coagulation 11/20/22 Range/Units 16:57 PT 10.6 (9.0-12.0) sec APTT 24.0 (22.0-30.0) sec CBC 11/20/22 11/21/22 Range/Units 16:57 05:45 WBC 6.9 5.5 (3.8-10.6) k/uL RBC 5.17 4.41 (3.80-5.40) m/uL Hgb 14.9 12.9 (11.4-16.0) gm/dL Hct 45.3 39.0 (34.0-46.0) % Plt Count 157 138 L (150-450) k/uL Comprehensive Metabolic Panel 11/20/22 11/21/22 Range/Units 16:57 05:45 Sodium 140 139 (137-145) mmol/L Potassium 5.0 4.0 (3.5-5.1) mmol/L Chloride 107 111 H (98-107) mmol/L Carbon Dioxide 25 20 L (22-30) mmol/L BUN 19 H 15 (7-17) mg/dL Creatinine 1.20 H 1.02 (0.52-1.04) mg/dL Glucose 115 H 80 (74-99) mg/dL Calcium 9.6 9.2 (8.4-10.2) mg/dL AST 36 (14-36) U/L ALT 22 (4-34) U/L Alkaline Phosphatase 111 (38-126) U/L Total Protein 7.5 (6.3-8.2) g/dL Albumin 4.6 (3.5-5.0) g/dL Current Medications Generic Name Dose Route Start Last Admin Trade Name Freq PRN Reason Stop Dose Admin Apixaban 5 mg 11/20/22 21:00 11/20/22 20:50 Apixaban 5 Mg Tab PO 5 mg BID ANDREINA Administration Protocol Diltiazem HCl 125 mg/ Sodium 125 mls @ 5 mls/hr 11/20/22 17:30 11/20/22 17:08 Chloride IV 5 mg/hr .Q24H ANDREINA 5 mls/hr Administration 5 MG/HR Sodium Chloride 1,000 mls @ 75 mls/hr 11/20/22 19:00 11/20/22 20:47 Saline 0.9% IV 75 mls/hr .[id number] ANDREINA Administration Ceftriaxone Sodium 1 gm/ 50 mls @ 100 mls/hr 11/21/22 06:00 11/21/22 06:01 Sodium Chloride IVPB 100 mls/hr Q12H ANDREINA Administration Metoprolol Tartrate 25 mg 11/20/22 21:00 11/20/22 20:50 Metoprolol Tartrate 25 Mg Tab PO 25 mg BID ANDREINA Administration Naloxone HCl 0.2 mg 11/20/22 18:51 Naloxone 0.4 Mg/Ml 1 Ml Vial IV Q2M PRN Opioid Reversal Intake and Output 11/20/22 11/21/22 11/21/22 22:59 06:59 14:59 Other: Weight 79.379 kg 11/21/22 05:45 11/21/22 05:45
--- NOTE | 2022-11-22 08:40 | P.PN ---
Subjective Principal diagnosis: Atrial fibrillation with rapid ventricular response. The patient feels much better after recent medical changes. Patient cardiology input. No chest pain or shortness of breath tolerating diet. No voiding diffi culties Objective - Vital Signs Vital signs: Vital Signs Temp 97.4 F L 11/22/22 07:49 Pulse 74 11/22/22 07:49 Resp 16 11/22/22 07:49 BP 119/78 11/22/22 07:49 Pulse Ox 99 11/22/22 07:49 FiO2 Intake & Output 11/21/22 11/22/22 11/22/22 18:59 06:59 18:59 Intake Total 540 Balance 540 Weight 79.379 kg Intake: Oral 540 Other: Voiding Method Toilet # Voids 1 - Constitutional General appearance: Present: average body habitus - EENT Eyes: Absent: abnormal pupil - Neck Neck: Absent: lymphadenopathy - Respiratory Respiratory: bilateral: diminished - Cardiovascular Rhythm: irregularly irregular Heart sounds: normal: S1, S2 - Gastrointestinal General gastrointestinal: Present: soft. Absent: tenderness - Labs CBC & Chem 7: 11/21/22 05:45 11/21/22 05:45 Labs: Microbiology - Last 24 Hours (Table) 11/20/22 20:25 Blood Culture - Preliminary Blood Assessment and Plan (1) Atrial fibrillation with rapid ventricular response Current Visit: Yes Status: Acute Code(s): I48.91 - UNSPECIFIED ATRIAL FIBRILLATION SNOMED Code(s): 160951788729353 (2) Hypertension Current Visit: Yes Status: Acute Code(s): I10 - ESSENTIAL (PRIMARY) HYPERTENSION SNOMED Code(s): 75232203 (3) UTI (urinary tract infection) Current Visit: Yes Status: Acute Code(s): N39.0 - URINARY TRACT INFECTION, SITE NOT SPECIFIED SNOMED Code(s): 09610077 (4) Cardiomyopathy Current Visit: No Status: Acute Code(s): I42.9 - CARDIOMYOPATHY, UNSPECIFIED SNOMED Code(s): 05209960 Plan: Continue current regimen or treatment. Appreciate cardiology input. Dr. Penaloza's group will be covering the weekend
[2022-11-22] MEDS: APIXABAN 5 MG TAB PO SCH ×2 (09:18→19:58)
[2022-11-22] MEDS: lisinopriL 20 MG TAB PO SCH (09:18)
[2022-11-22] MEDS: ATORVASTATIN 40 MG TAB PO SCH (09:18)
[2022-11-22] MEDS: METOPROLOL TARTRATE 50 MG TAB PO SCH ×2 (09:18→19:58)
[2022-11-22] MEDS: SODIUM CHLORIDE 0.9% 1,000 ML IV SCH (12:05)
--- NOTE | 2022-11-22 13:28 | P.PN ---
Subjective Progress Note Date: 11/22/22 History of present illness: This is a 67-year-old female patient of Dr. Anay Amin with past medical history of paroxysmal atrial fibrillation, moderate mitral regurgitation, hypertension, dyslipidemia. We have been asked to evaluate the patient for A. fib with RVR. Patient was last seen in the office on 11/20 and she was found to be in atrial fibrillation with poorly controlled ventricular rate. She was also being treated for cystitis and presented with palpitations. Patient was sent into the emergency center for rate control and possible cardioversion. Patient states that she is feeling tired. 2 days ago she was a little short of breath but she does have some chronic shortness of breath but seems to be a little bit worse. She continues to feel tired. Her heart rate is at 1 20 bpm. She has not been started on Cardizem drip. Patient is seen in the emergency center waiting for a bed on the cardiac stepdown unit. EKG atrial fibrillation at a ventricular rate of 151, Telemetry atrial fi brillation at 120 bpm Chest x-ray: No acute process WBC 5.5, hemoglobin 12.9, platelet count 138. INR 1. Sodium 139, potassium 4, chloride 111, CO2 20, BUN initially 19 and creatinine 1. 2 repeat of 15 and 1.02. TSH 1.85. Liver function tests are normal. Troponin negative 1. Urinalysis positive for UTI. Home cardiac medications: Amlodipine 5 mg daily, eliquis 5 mg twice daily, Lipitor 40 mg daily, Lasix 20 mg daily, lisinopril 20 mg daily. Echocardiogram performed 02/2022 revealed EF 50-55%. Small hypokinetic area on the inferior wall at the base. Mild concentric left ventricular hypertrophy. Severely dilated left atrium. Trace aortic regurgitation. Moderate mitral regurgitation, moderate tricuspid regurgitation, PAS P 41 mmHg. 11/22 Patient is seen today on the cardiac stepdown unit. Yesterday she was started on Lopressor and continued on eliquis. She is on IV antibiotics for urinary tract infection. She states she is feeling much better in general and also urinary symptoms are improving. She remains in atrial fibrillation with heart rate controlled in the 70s, blood pressure 119/78. Currently rate controlled Physical examination: Gen: This is a 67-year-old female. She is resting on ER stretcher. She appears to be in no acute distress. VS: reviewed HEENT: Head is atraumatic, normocephalic. Pupils equal, round. Sclerae is anicteric. NECK: Supple. No JVD. . LUNGS: Clear to auscultation. No wheezes or rhonchi. No intercostal retractions. HEART: Irregularrate and rhythm. No murmur. ABDOMEN: Soft No tenderness. EXTREMITIES: No pedal edema. No calf tenderness. NEUROLOGICAL: Patient is awake, alert and oriented x3. Assessment: Atrial fibrillation with RVR, paroxysmal atrial fibrillation Moderate mitral regurgitation Hypertension Dyslipidemia Plan: Continue patient on Lopressor 100 mg twice daily No need to obtain echocardiogram at this time Patient is cleared for discharge from cardiology and may follow-up with Dr. Amin in one week. Patient may be considered for cardioversion at that time. Patient to continue on current medications.. Nurse practitioner note has been reviewed, I agree with documented findings and plan of care. Patient was seen and examined. Objective - Vital Signs Vital signs: Vital Signs Temp 97.4 F L 11/22/22 07:49 Pulse 74 11/22/22 07:49 Resp 16 11/22/22 07:49 BP 119/78 11/22/22 07:49 Pulse Ox 99 11/22/22 07:49 FiO2 Intake & Output 11/21/22 11/22/22 11/22/22 18:59 06:59 18:59 Intake Total 540 Balance 540 Weight 79.379 kg Intake: Oral 540 Other: Voiding Method Toilet # Voids 1 - Labs CBC & Chem 7: 11/21/22 05:45 11/21/22 05:45 Labs: Microbiology - Last 24 Hours (Table) 11/20/22 20:25 Blood Culture - Preliminary Blood
[2022-11-23] MEDS: SODIUM CHLORIDE 0.9% 1,000 ML IV SCH (05:31)
[2022-11-23] MEDS: ATORVASTATIN 40 MG TAB PO SCH (08:49)
[2022-11-23] MEDS: APIXABAN 5 MG TAB PO SCH ×2 (08:49→20:05)
[2022-11-23] MEDS: lisinopriL 20 MG TAB PO SCH (08:50)
[2022-11-23] MEDS: METOPROLOL TARTRATE 50 MG TAB PO SCH ×2 (08:50→20:05)
--- NOTE | 2022-11-23 13:15 | P.PN ---
Subjective Progress Note Date: 11/23/22 The patient is a 67-year-old female who presented to the emergency room after being directed by her primary timber surveyor Dr. Ramirez. She was noted to be in atrial fibrillation in the office and was referred for further treatment. Unfortunately the patient did not convert with Cardizem drip. She will also was found to have a urinary tract infection and cystitis, for which she is receiving antibiotics. Despite being rate controlled, the patient remained symptomatic with poor activity intolerance and generalized weakness and fatigue. GENERAL: Well-appearing, well-nourished and in no acute distress. NECK: Supple without JVD or thyromegaly. LUNGS: Breath sounds clear to auscultation bilaterally. Respiration equal and unlabored. No wheezes, rales or rhonchi. HEART: Regular rate and rhythm without murmurs, rubs or gallops. S1 and S2 heard. EXTREMITIES: Normal range of motion, no edema. No clubbing or cyanosis. Peripheral pulses intact and strong. TELEMETRY: Persistent atrial fibrillation, rate controlled IMPRESSION: Persistent atrial fibrillation, symptomatic Moderate mitral regurgitation Hypertension Dyslipidemia PLAN: Nothing by mouth after midnight on Friday Cardioversion with primary timber surveyor Dr. Amin on Friday Recommend outpatient referral to electrophysiology for A. fib ablation as she has been intolerant to beta blockers and antiarrhythmics in the past Further recommendations to be based upon clinical course I am dictating on behalf of Dr Roberto Altamirano's history/physical and assessment/plan. Objective - Vital Signs Vital signs: Vital Signs Temp 98.1 F 11/23/22 11:57 Pulse 84 11/23/22 11:57 Resp 20 11/23/22 11:57 BP 120/83 11/23/22 11:57 Pulse Ox 98 11/23/22 11:57 FiO2 Intake & Output 11/22/22 11/23/22 11/23/22 18:59 06:59 18:59 Intake Total 180 1180 180 Balance 180 1180 180 Intake: Intake, IV Titration 100 Amount cefTRIAXone 1 gm In 100 Sodium Chloride 0.9% 50 ml @ 100 mls/hr IVPB Q12H [facility] Rx#:[id number] Oral 180 1080 180 Other: Voiding Method Toilet Toilet Toilet # Voids 1 2 - Labs CBC & Chem 7: 11/21/22 05:45 11/21/22 05:45 Labs: Microbiology - Last 24 Hours (Table) 11/20/22 20:25 Blood Culture - Preliminary Blood
--- NOTE | 2022-11-23 13:19 | P.PN ---
Subjective Progress Note Date: 11/23/22 The patient is a 67-year-old female who presented to the emergency room after being directed by her primary band master Dr. Ramirez. She was noted to be in atrial fibrillation in the office and was referred for further treatment. Unfortunately the patient did not convert with Cardizem drip. She will also was found to have a urinary tract infection and cystitis, for which she is receiving antibiotics. Despite being rate controlled, the patient remained symptomatic with poor activity intolerance and generalized weakness and fatigue. 11/23. Patient seen and examined. Denies any shortness of breath at rest, get short of breath on exertion. Denies any swelling of feet. Vital signs stable REVIEW OF SYSTEMS: CONSTITUTIONAL: No fever, no malaise,. CARDIOVASCULAR: No chest pain, no palpitations, no syncope. PULMONARY: No shortness of breath, no cough, GASTROINTESTINAL: No diarrhea, no nausea, no vomiting, no abdominal pain. NEUROLOGICAL: No headaches, no weakness, PHYSICAL EXAMINATION: GENERAL: The patient is alert and oriented x3, not in any acute distress. Well developed, well nourished. HEENT: Pupils are round and equally reacting to light. EOMI. No scleral icterus. No conjunctival pallor. Normocephalic, atraumatic. No pharyngeal erythema. No thyromegaly. CARDIOVASCULAR: S1 and S2 present. No murmurs, rubs, or gallops. PULMONARY: Chest is clear to auscultation, no wheezing or crackles. ABDOMEN: Soft, nontender, nondistended, normoactive bowel sounds. No palpable organomegaly. MUSCULOSKELETAL: No joint swelling or deformity. EXTREMITIES: No cyanosis, clubbing, or pedal edema. NEUROLOGICAL: Gross neurological examination did not reveal any focal deficits. SKIN: No rashes. Assessment and plan A. fib with RVR Moderate mitral regurgitation Hypertension Dyslipidemia UTI Cardiomyopathy Monitor vital signs Monitor CBC Monitor CMP Continue telemetry monitoring Continue Eliquis and Lopressor Continue IV Rocephin DC fluids Cardiology planning To cardioversion on Friday, NPO after midnight on Friday Labs and medication were reviewed.. Continue same treatment. Continue with symptomatic treatment. Resume home medication. Monitor labs and vitals. DVT and GI prophylaxis. Further recommendations as per clinical course of the patient Dictation was produced using [employer] software. please excuse any grammatical, word or spelling errors. Objective - Vital Signs Vital signs: Vital Signs Temp 98.1 F 11/23/22 11:57 Pulse 84 11/23/22 11:57 Resp 20 11/23/22 11:57 BP 120/83 11/23/22 11:57 Pulse Ox 98 11/23/22 11:57 FiO2 Intake & Output 11/22/22 11/23/22 11/23/22 18:59 06:59 18:59 Intake Total 180 1180 180 Balance 180 1180 180 Intake: Intake, IV Titration 100 Amount cefTRIAXone 1 gm In 100 Sodium Chloride 0.9% 50 ml @ 100 mls/hr IVPB Q12H [facility] Rx#:[id number] Oral 180 1080 180 Other: Voiding Method Toilet Toilet Toilet # Voids 1 2 - Labs CBC & Chem 7: 11/21/22 05:45 11/21/22 05:45 Labs: Microbiology - Last 24 Hours (Table) 11/20/22 20:25 Blood Culture - Preliminary Blood
[2022-11-24] MEDS: APIXABAN 5 MG TAB PO SCH ×2 (08:55→20:31)
[2022-11-24] MEDS: METOPROLOL TARTRATE 50 MG TAB PO SCH ×2 (08:55→20:31)
[2022-11-24] MEDS: lisinopriL 20 MG TAB PO SCH (08:55)
[2022-11-24] MEDS: ATORVASTATIN 40 MG TAB PO SCH (08:56)
--- NOTE | 2022-11-24 12:11 | P.PN ---
Subjective Progress Note Date: 11/24/22 The patient is a 67-year-old female who presented to the emergency room after being directed by her primary magnetic tape typewriter operator Dr. Ramirez. She was noted to be in atrial fibrillation in the office and was referred for further treatment. Unfortunately the patient did not convert with Cardizem drip. She will also was found to have a urinary tract infection and cystitis, for which she is receiving antibiotics. Despite being rate controlled, the patient remained symptomatic with poor activity intolerance and generalized weakness and fatigue. 11/23. Patient seen and examined. Denies any shortness of breath at rest, get short of breath on exertion. Denies any swelling of feet. Vital signs stable 11/24. Patient seen and examined. Denies any lightheadedness or dizziness. Denies any palpitations. Vital signs stable REVIEW OF SYSTEMS: CONSTITUTIONAL: No fever, no malaise,. CARDIOVASCULAR: No chest pain, no palpitations, no syncope. PULMONARY: No shortness of breath, no cough, GASTROINTESTINAL: No diarrhea, no nausea, no vomiting, no abdominal pain. NEUROLOGICAL: No headaches, no weakness, PHYSICAL EXAMINATION: GENERAL: The patient is alert and oriented x3, not in any acute distress. Well developed, well nourished. HEENT: Pupils are round and equally reacting to light. EOMI. No scleral icterus. No conjunctival pallor. Normocephalic, atraumatic. No pharyngeal erythema. No thyromegaly. CARDIOVASCULAR: S1 and S2 present. No murmurs, rubs, or gallops. PULMONARY: Chest is clear to auscultation, no wheezing or crackles. ABDOMEN: Soft, nontender, nondistended, normoactive bowel sounds. No palpable organomegaly. MUSCULOSKELETAL: No joint swelling or deformity. EXTREMITIES: No cyanosis, clubbing, or pedal edema. NEUROLOGICAL: Gross neurological examination did not reveal any focal deficits. SKIN: No rashes. Assessment and plan A. fib with RVR Moderate mitral regurgitation Hypertension Dyslipidemia UTI Cardiomyopathy Monitor vital signs Monitor CBC Monitor CMP Continue telemetry monitoring Continue Eliquis and Lopressor Continue IV Rocephin Cardiology planning for cardioversion on Friday, NPO after midnight on Friday Labs and medication were reviewed.. Continue same treatment. Continue with symptomatic treatment. Resume home medication. Monitor labs and vitals. DVT and GI prophylaxis. Further recommendations as per clinical course of the patient Dictation was produced using [employer] dictation software. please excuse any grammatical, word or spelling errors. Objective - Vital Signs Vital signs: Vital Signs Temp 97.7 F 11/24/22 08:00 Pulse 101 H 11/24/22 08:00 Resp 17 11/24/22 08:00 BP 136/97 11/24/22 08:00 Pulse Ox 98 11/24/22 08:00 FiO2 Intake & Output 11/23/22 11/24/22 11/24/22 18:59 06:59 18:59 Intake Total 770 590 118 Balance 770 590 118 Intake: Intake, IV Titration 50 50 Amount cefTRIAXone 1 gm In 50 50 Sodium Chloride 0.9% 50 ml @ 100 mls/hr IVPB Q12H [facility] Rx#:[id number] Oral 720 540 118 Other: Voiding Method Toilet Toilet Toilet # Voids 2 1 - Labs CBC & Chem 7: 11/21/22 05:45 11/21/22 05:45 Labs: Microbiology - Last 24 Hours (Table) 11/20/22 20:25 Blood Culture - Preliminary Blood
--- NOTE | 2022-11-24 14:41 | P.PN ---
Subjective Progress Note Date: 11/24/22 This is Thomas Valentine NP, I'm dictating on behalf of Dr. Altamirano's H&P and A&P. Patient was interviewed and examined. The patient is a pleasant 67-year-old female who presented to the emergency room after being directed by her primary tax commissioner for noting A. fib in the office. Patient was started on a Cardizem drip, but unfortunate did not convert. Patient was also found to have a UTI and cystitis, and has been receiving antibiotics. Despite rate control, the patient has remained astigmatic and demonstrates poor activity intolerance and generalized weakness and fatigue. Today she does report that she's feeling okay. She is denying chest pain, shortness of breath, heart palpitations. Patient continues to demonstrate A. fib with controlled ventricular response on telemetry. GENERAL: Well-appearing, well-nourished and in no acute distress. NECK: Supple without JVD or thyromegaly. LUNGS: Breath sounds clear to auscultation bilaterally. Respiration equal and unlabored. No wheezes, rales or rhonchi. HEART: Regular rate and rhythm without murmurs, rubs or gallops. S1 and S2 heard. EXTREMITIES: Normal range of motion, no edema. No clubbing or cyanosis. Peripheral pulses intact and strong. VITALS: Temp 97.7, pulse 101, respirations 17, blood pressure 136/97, O2 saturation 98% on room air TELEMETRY: Atrial fibrillation with controlled ventricular response LABS: No new labs since 11/21/2022 IMPRESSION: 1. Persistent atrial fibrillation, symptomatic 2. Moderate mitral regurgitation 3. Hypertension 4. Dyslipidemia PLAN: Transesophageal echocardiogram with cardioversion tomorrow with Dr. Amin. Nothing by mouth at midnight. Recommend atrial fibrillation ablation after successful cardioversion. This can be done after discharge. Objective - Vital Signs Vital signs: Vital Signs Temp 97.5 F L 11/24/22 11:30 Pulse 80 11/24/22 13:52 Resp 17 11/24/22 13:52 BP 117/77 11/24/22 11:30 Pulse Ox 99 11/24/22 11:30 FiO2 Intake & Output 11/23/22 11/24/22 11/24/22 18:59 06:59 18:59 Intake Total 770 590 118 Balance 770 590 118 Intake: Intake, IV Titration 50 50 Amount cefTRIAXone 1 gm In 50 50 Sodium Chloride 0.9% 50 ml @ 100 mls/hr IVPB Q12H [facility] Rx#:[id number] Oral 720 540 118 Other: Voiding Method Toilet Toilet Toilet # Voids 2 1 - Labs CBC & Chem 7: 11/21/22 05:45 11/21/22 05:45 Labs: Microbiology - Last 24 Hours (Table) 11/20/22 20:25 Blood Culture - Preliminary Blood
[2022-11-24] MEDS: SODIUM CHLORIDE 0.9% 1,000 ML IV SCH (15:00)
[2022-11-25] MEDS: ATORVASTATIN 40 MG TAB PO SCH (08:27)
[2022-11-25] MEDS: APIXABAN 5 MG TAB PO SCH ×2 (08:27→19:43)
[2022-11-25] MEDS: lisinopriL 20 MG TAB PO SCH (08:27)
[2022-11-25] MEDS: METOPROLOL TARTRATE 50 MG TAB PO SCH ×2 (08:27→19:43)
--- NOTE | 2022-11-25 08:41 | P.PN ---
Subjective Progress Note Date: 11/25/22 Principal diagnosis: atrial fibrillation This is a 67-year-old female originally sent over from cardiology for tachycardia and history of atrial fibrillation. Patient found to be in atrial fibrillation with RVR and admission, she was on a Cardizem drip however did not convert to sinus rhythm. Patient also was found to have UTI and admission. Cardiology is planning a JOE with cardioversion today with Dr. Amin. There also recommending atrial fibrillation ablation after successful cardioversion which can be done after discharge. She is seen and evaluated laying in bed this morning, she denies any current complaints Objective - Vital Signs Vital signs: Vital Signs Temp 97.8 F 11/25/22 08:05 Pulse 68 11/25/22 08:05 Resp 17 11/25/22 08:05 BP 141/88 11/25/22 08:05 Pulse Ox 97 11/25/22 08:05 FiO2 Intake & Output 11/24/22 11/25/22 11/25/22 18:59 06:59 18:59 Intake Total 318 Balance 318 Intake: Intake, IV Titration 200 Amount Sodium Chloride 0.9% 1, 200 000 ml @ 20 mls/hr IV . Q24H [facility] Rx#:[id number] Oral 118 Other: Voiding Method Toilet Toilet # Voids 1 1 - Constitutional General appearance: Present: cooperative, no acute distress - EENT Eyes: Present: PERRLA - Neck Neck: Present: normal ROM. Absent: lymphadenopathy, rigidity - Respiratory Respiratory: bilateral: CTA - Cardiovascular Rhythm: irregularly irregular - Gastrointestinal General gastrointestinal: Present: soft. Absent: tenderness - Integumentary Integumentary: Present: normal, normal turgor - Psychiatric Psychiatric: Present: A&O x's 3, appropriate affect, intact judgment & insight - Labs CBC & Chem 7: 11/21/22 05:45 11/21/22 05:45 Labs: Microbiology - Last 24 Hours (Table) 11/20/22 20:25 Blood Culture - Preliminary Blood Assessment and Plan (1) Atrial fibrillation Current Visit: Yes Status: Acute Code(s): I48.91 - UNSPECIFIED ATRIAL FIBRILLATION SNOMED Code(s): 02562081 (2) UTI (urinary tract infection) Current Visit: Yes Status: Acute Code(s): N39.0 - URINARY TRACT INFECTION, S ITE NOT SPECIFIED SNOMED Code(s): 19688535 (3) Hypertension Current Visit: Yes Status: Acute Code(s): I10 - ESSENTIAL (PRIMARY) HYPERTENSION SNOMED Code(s): 86939252 Plan: JOE with cardioversion today. Anticipate discharge with next 24-48 hours Patient seen and evaluated by nurse practitioner, physician in agreement with plan
[2022-11-25 09:10] LABS: Basophils % (A) 1 %; Eosinophils # (A) 0.1 k/uL (0-0.7); Eosinophils % (A) 2 %; HCT 38.2 % (34.0-46.0); HGB 12.9 gm/dL (11.4-16.0); Lymphocytes # (A) 1.6 k/uL (1.0-4.8); Lymphocytes % (A) 34 %; MCH 29.6 pg (25.0-35.0); MCHC 33.8 g/dL (31.0-37.0); MCV 87.4 fL (80.0-100.0); Mean Platelet Volume 7.4; Monocytes # (A) 0.3 k/uL (0-1.0); Monocytes % (A) 6 %; Neutrophils # (A) 2.6 k/uL (1.3-7.7); Neutrophils % (A) 56 %; Platelet Count 130 k/uL (150-450); RBC 4.37 m/uL (3.80-5.40); RDW 14.5 % (11.5-15.5); WBC 4.6 k/uL (3.8-10.6)
[2022-11-25 09:21] LABS: ALT 19 U/L (4-34); AST 23 U/L (14-36); African American GFR (CKD) 56 (>60 ml/min/1.73 sqM); Albumin 3.8 g/dL (3.5-5.0); Alkaline Phosphatase 98 U/L (38-126); Anion Gap 4 mmol/L; Blood Urea Nitrogen 25 mg/dL (7-17); Carbon Dioxide 28 mmol/L (22-30); Chloride 109 mmol/L (98-107); Glucose 91 mg/dL (74-99); Non-African American GFR(CKD) 48 (>60 ml/min/1.73 sqM); Sodium 141 mmol/L (137-145); Total Bilirubin 0.7 mg/dL (0.2-1.3); Total Protein 6.3 g/dL (6.3-8.2)
[2022-11-25 09:47] LABS: Potassium 4.2 mmol/L (3.5-5.1)
--- NOTE | 2022-11-25 12:00 | P.PN ---
Subjective HISTORY OF PRESENT ILLNESS: 11/24/2022 The patient is a pleasant 67-year-old female who presented to the emergency room after being directed by her primary undercover agent for noting A. fib in the office. Patient was started on a Cardizem drip, but unfortunate did not convert. Patient was also found to have a UTI and cystitis, and has been receiving antibiotics. Despite rate control, the patient has remained astigmatic and demonstrates poor activity intolerance and generalized weakness and fatigue. Today she does report that she's feeling okay. She is denying chest pain, shortness of breath, heart palpitations. Patient continues to demonstrate A. fib with controlled ventricular response on telemetry. 11/25/2022 Patient examined this morning at the bedside. Patient denies chest pain or pre ssure. She denies shortness of breath. Vital signs are stable. Telemetry reveals atrial fibrillation with a heart rate in the 70s. Patient was initially scheduled for JOE and cardioversion today. However due to scheduling issues this has been canceled. PHYSICAL EXAM: VITAL SIGNS: Reviewed. GENERAL: Well-developed in no acute distress. NECK: Supple. No JVD or thyromegaly LUNGS: Respirations even and unlabored. Lungs essentially clear to auscultation bilaterally. HEART: Irregular rate and rhythm. S1 and S2 heard. EXTREMITIES: Normal range of motion. No clubbing or cyanosis. Peripheral pulses intact. No lower extremity edema ASSESSMENT: Persistent atrial fibrillation Urinary tract infection Hypertension Hyperlipidemia Moderate mitral regurgitation PLAN: Continue current cardiac medications Continue anticoagulation with Eliquis Patient was initially scheduled for JOE and cardioversion today. However due to scheduling issues this has been canceled and will be rescheduled for tomorrow. Nothing by mouth at midnight Further recommendations pending patient course Nurse practitioner note has been reviewed by physician. Signing provider agrees with the documented findings, assessment, and plan of care. Objective - Vital Signs Vital signs: Vital Signs Temp 97.5 F L 11/25/22 11:10 Pulse 83 11/25/22 11:10 Resp 16 11/25/22 11:10 BP 129/80 11/25/22 11:10 Pulse Ox 98 11/25/22 11:10 FiO2 Intake & Output 11/24/22 11/25/22 11/25/22 18:59 06:59 18:59 Intake Total 318 Balance 318 Intake: Intake, IV Titration 200 Amount Sodium Chloride 0.9% 1, 200 000 ml @ 20 mls/hr IV . Q24H [facility] Rx#:[id number] Oral 118 Other: Voiding Method Toilet Toilet Toilet # Voids 1 1 1 - Labs CBC & Chem 7: 11/25/22 08:48 11/25/22 08:48 Labs: Abnormal Lab Results - Last 24 Hours (Table) 11/25/22 11/25/22 Range/Units 08:48 08:48 Plt Count 130 L (150-450) k/uL Chloride 109 H (98-107) mmol/L BUN 25 H (7-17) mg/dL Creatinine 1.16 H (0.52-1.04) mg/dL
[2022-11-25] MEDS: SODIUM CHLORIDE 0.9% 1,000 ML IV SCH (15:44)
[2022-11-26] MEDS ORDERED: SODIUM CHLORIDE 0.9% 500 ML 500 ML IV ONE ×2 (06:50)
[2022-11-26] MEDS ORDERED: PROPOFOL 10 MG/ML 20 ML VIAL IV ONE (07:22)
[2022-11-26] MEDS ORDERED: LIDOCAINE 2% INJ 20 MG/ML (2 ML VIAL) ONE (07:22)
--- NOTE | 2022-11-26 07:58 | ECHOT ---
TRANSESOPHAGEAL ECHOCARDIOGRAM INDICATION: Persistent atrial fibrillation. PROCEDURE PERFORMED: Transesophageal echo, indication to rule out intracardiac thrombus. PROCEDURE NOTE: After obtaining informed consent, transesophageal echocardiogram was performed in left lateral position using an Omniplane probe. Local and IV sedation were obtained by the senior qc technician. The patient tolerated the procedure well without any obvious immediate complications. FINDINGS: 1. There is no intracardiac thrombus within the left atrial appendage, left atrium, right atrium, right ventricle, or left ventricle. 2. Left atrium appears severely enlarged. 3. Right atrium and right ventricle seen within normal limits. 4. Mitral valve shows moderate to severe central mitral regurgitation. 5. There is moderate tricuspid regurgitation noted. There is no evidence of left-to- right shunt by color-flow Doppler or rdnqz-uu-gwcl shunt by agitated saline contrast study. Aortic valve is a 3-leaflet valve. There is no evidence of aortic stenosis or regurgitation. CONCLUSIONS: 1. Dilated left ventricle with diffuse global hypokinesis with [id number] LV systolic dysfunction with an ejection fraction of 30%-35%. 2. Moderate to severe central mitral regurgitation. 3. Moderate tricuspid regurgitation. PLAN: The patient will undergo cardioversion. MMODL / IJN: [id number] /
[2022-11-26] MEDS ORDERED: SODIUM CHLORIDE 0.9% 1,000 ML IV ONE ×2 (08:17)
[2022-11-26] MEDS ORDERED: METOPROLOL TARTRATE 50 MG TAB PO SCH (09:00)
--- NOTE | 2022-11-26 09:07 | P.PN ---
Subjective Progress Note Date: 11/26/22 Principal diagnosis: atrial fibrillation This is a 67-year-old female originally sent over from cardiology for tachycardia and history of atrial fibrillation. Patient found to be in atrial fibrillation with RVR and admission, she was on a Cardizem drip however did not convert to sinus rhythm. Patient also was found to have UTI and admission. Cardiology is planning a JOE with cardioversion today with Dr. Amin. There also recommending atrial fibrillation ablation after successful cardioversion which can be done after discharge. She is seen and evaluated laying in bed this morning, she denies any current complaints 11/26/2022 Patient was not seen today, JOE was delayed and occurred this morning. Objective - Vital Signs Vital signs: Vital Signs Temp 97.7 F 11/26/22 05:00 Pulse 47 L 11/26/22 08:20 Resp 16 11/26/22 08:20 BP 133/73 11/26/22 08:20 Pulse Ox 96 11/26/22 08:20 FiO2 Intake & Output 11/25/22 11/26/22 11/26/22 18:59 06:59 18:59 Intake Total 360 240 225 Balance 360 240 225 Weight 79.379 kg Intake: IV 225 Intake, IV Titration 240 Amount Sodium Chloride 0.9% 1, 240 000 ml @ 20 mls/hr IV . Q24H [facility] Rx#:[id number] Oral 360 Other: Voiding Method Toilet Toilet # Voids 1 1 - Exam Unable to obtain, patient unavailable, down for JOE at time of visit - Labs CBC & Chem 7: 11/25/22 08:48 11/25/22 08:48 Labs: Abnormal Lab Results - Last 24 Hours (Table) 11/25/22 11/25/22 Range/Units 08:48 08:48 Plt Count 130 L (150-450) k/uL Chloride 109 H (98-107) mmol/L BUN 25 H (7-17) mg/dL Creatinine 1.16 H (0.52-1.04) mg/dL Microbiology - Last 24 Hours (Table) 11/20/22 20:25 Blood Culture - Final Blood Assessment and Plan (1) Atrial fibrillation Current Visit: Yes Status: Acute Code(s): I48.91 - UNSPECIFIED ATRIAL FIBRILLATION SNOMED Code(s): 72452134 (2) UTI (urinary tract infection) Current Visit: Yes Status: Acute Code(s): N39.0 - URINARY TRACT INFECTION, SITE NOT SPECIFIED SNOMED Code(s): 93226273 (3) Hypertension Current Visit: Yes Status: Acute Code(s): I10 - ESSENTIAL (PRIMARY) HYPERTENSION SNOMED Code(s): 42722013 Plan: JOE with cardioversion today. Anticipate discharge with next 24-48 hours Patient seen and evaluated by nurse practitioner, physician in agreement with plan
[2022-11-26] MEDS: lisinopriL 20 MG TAB PO SCH (09:28)
[2022-11-26] MEDS: ATORVASTATIN 40 MG TAB PO SCH (09:28)
[2022-11-26] MEDS: APIXABAN 5 MG TAB PO SCH (09:28)
[2022-11-26 12:59] VITALS: RESP 17
--- NOTE | 2022-11-26 13:39 | P.PN ---
Subjective HISTORY OF PRESENT ILLNESS: 11/24/2022 The patient is a pleasant 67-year-old female who presented to the emergency room after being directed by her primary oyster buyer for noting A. fib in the office. Patient was started on a Cardizem drip, but unfortunate did not convert. Patient was also found to have a UTI and cystitis, and has been receiving antibiotics. Despite rate control, the patient has remained astigmatic and demonstrates poor activity intolerance and generalized weakness and fatigue. Today she does report that she's feeling okay. She is denying chest pain, shortness of breath, heart palpitations. Patient continues to demonstrate A. fib with controlled ventricular response on telemetry. 11/25/2022 Patient examined this morning at the bedside. Patient denies chest pain or pre ssure. She denies shortness of breath. Vital signs are stable. Telemetry reveals atrial fibrillation with a heart rate in the 70s. Patient was initially scheduled for JOE and cardioversion today. However due to scheduling issues this has been canceled. 11/26/2022 Patient underwent JOE and cardioversion this morning. Patient is maintaining sinus bradycardia postprocedure. She denies chest pain or pressure. She denies shortness of breath. Vital signs are stable. PHYSICAL EXAM: VITAL SIGNS: Reviewed. GENERAL: Well-developed in no acute distress. NECK: Supple. No JVD or thyromegaly LUNGS: Respirations even and unlabored. Lungs essentially clear to auscultation bilaterally. HEART: Irregular rate and rhythm. S1 and S2 heard. EXTREMITIES: Normal range of motion. No clubbing or cyanosis. Peripheral pulses intact. No lower extremity edema ASSESSMENT: Persistent atrial fibrillation Urinary tract infection Hypertension Hyperlipidemia Moderate mitral regurgitation PLAN: Continue current cardiac medications Decrease metoprolol to 25mg BID Continue anticoagulation with Eliquis Patient is stable for discharge home today from a cardiac standpoint Nurse practitioner note has been reviewed by physician. Signing provider agrees with the documented findings, assessment, and plan of care. Objective - Vital Signs Vital signs: Vital Signs Temp 98.8 F 11/26/22 12:00 Pulse 64 11/26/22 13:31 Resp 17 11/26/22 13:31 BP 133/70 11/26/22 12:00 Pulse Ox 99 11/26/22 12:00 FiO2 Intake & Output 11/25/22 11/26/22 11/26/22 18:59 06:59 18:59 Intake Total 360 240 150 Balance 360 240 150 Weight 79.379 kg Intake: IV 150 Intake, IV Titration 240 Amount Sodium Chloride 0.9% 1, 240 000 ml @ 20 mls/hr IV . Q24H [facility] Rx#:[id number] Oral 360 Other: Voiding Method Toilet Toilet Toilet # Voids 1 1 - Labs CBC & Chem 7: 11/25/22 08:48 11/25/22 08:48 Labs: Microbiology - Last 24 Hours (Table) 11/20/22 20:25 Blood Culture - Final Blood
--- NOTE | 2022-11-26 15:20 | PCN ---
PROCEDURE NOTE CARDIOVERSION NOTE. INDICATION: Persistent atrial fibrillation. After obtaining informed consent and making sure that the patient is adequately anticoagulated with Eliquis and ruling out intracardiac thrombus, the patient underwent electrical cardioversion with synchronized DC current. The patient converted to sinus rhythm following a second shock of 200 joules. She will continue the Eliquis, and we will continue her on medications and follow her LV function. If the LV function does not improve, I will have her see EP for a possible device therapy. MMODL / IJN: [id number] /
[2022-11-26 16:27] VITALS: BP 132/83; PULSE 57; TEMP 98.4
--- NOTE | 2022-11-26 16:44 | P.DS ---
Providers Date of admission: 11/20/22 20:17 Expected date of discharge: 11/26/22 Attending physician: Kiran Novak Consults: 11/20/22 18:51 Consult Physician Routine Consulting Provider: Bharat Amin Consult Reason/Comments: afib rvr Do you want consulting provider notified?: Yes, Notify in am Primary care physician: Kiran Novak - Discharge Diagnosis(es) (1) Atrial fibrillation with rapid ventricular response Current Visit: Yes Status: Acute (2) Hypertension Current Visit: Yes Status: Acute (3) UTI (urinary tract infection) Current Visit: Yes Status: Acute (4) Cardiomyopathy Current Visit: No Status: Acute Hospital Course: The patient Was admitted for appropriate atrial fibrillation with rapid ventricular response. She was stabilized with Cardizem and then weaned. The patient then ended up having cardioversion which he tolerated well. Medications were adjusted cardiology has cleared the patient and she will follow-up with me in 3-5 days. The patient is tolerating diet and no chest pain or shortness of breath and will follow up with me as stated above. Patient Condition at Discharge: Good Plan - Discharge Summary Discharge Rx Participant: Yes New Discharge Prescriptions: New Metoprolol Tartrate [Lopressor] 25 mg PO BID #60 tab Continue Atorvastatin [Lipitor] 40 mg PO DAILY lisinopriL [Zestril] 20 mg PO DAILY tab amLODIPine [Norvasc] 5 mg PO DAILY Furosemide [Lasix] 20 mg PO DAILY Cholecalciferol [Vitamin D3 (25 Mcg = 1000 Iu)] 25 mcg PO DAILY Apixaban [Eliquis] 5 mg PO BID Discharge Medication List Atorvastatin [Lipitor] 40 mg PO DAILY 01/19/16 [History] lisinopriL [Zestril] 20 mg PO DAILY tab 02/17/19 [Rx] Apixaban [Eliquis] 5 mg PO BID 11/20/22 [History] Cholecalciferol [Vitamin D3 (25 Mcg = 1000 Iu)] 25 mcg PO DAILY 11/20/22 [History] Furosemide [Lasix] 20 mg PO DAILY 11/20/22 [History] amLODIPine [Norvasc] 5 mg PO DAILY 11/20/22 [History] Metoprolol Tartrate [Lopressor] 25 mg PO BID #60 tab 11/26/22 [Rx] Follow up Appointment(s)/Referral(s): Bharat Amin MD [STAFF PHYSICIAN] - 1 Week (December 18, 2:15) Kiran Novak MD [Primary Care Provider] - 3 Days (FridayDecember 03, 11:00) Patient Instructions/Handouts: A-fib (Atrial Fibrillation) (DC) Discharge Disposition: HOME SELF-CARE
[2022-11-26] MEDS: SODIUM CHLORIDE 0.9% 1,000 ML IV SCH (17:06)
[2022-11-26] MEDS ORDERED: METOPROLOL TARTRATE 25 MG TAB PO SCH (21:00)
--- NOTE | 2022-11-27 11:42 | CDI ---
Documentation Clarification Form Date: 11/27/22 From: Nelida Bautista Admit Date: 11/20/2022 08:17:00 PM Patient Name: Faby Black Visit Number: [id number] Discharge Date: 11/26/2022 06:17:00 PM ATTENTION: The Clinical Documentation Specialists (CDI) and [facility] Coding Staff appreciate your assistance in clarifying documentation. Please respond to the clarification below the line at the bottom and electronically sign. The CDI & [facility] Coding staff will review the response and follow-up if needed. Please note: Queries are made part of the Legal Health Record. If you have any questions, please contact the author of this message via ITS. Dr. Kiran Novak, Your patient has the documented diagnosis of unspecified CHF [insert date, location]. Additional information regarding the [type, acuity] of CHF is requested. History/Risk Factors: This is a 67-year-old female who was sent over from cardiology yesterday because her heart rate was in the 140 to 150s.She does have a history ofatrial fibrillation, underwent acardioversionin 2018 whichconverted her to sinus rhythm. Clinical Indicators: Patient was found to be in atrial fibrillationwith RVR on admission, she was started on a Cardizem drip. VS/Pulse OX: T 98.4, P 137, R 20, BP 136/96, O2 Sat 98 BNP: None Echocardiogram Results: Dilated left ventriclewith diffuse global hypokinesis with [id number] LV systolicdysfunctionwith an ejection fraction of 30%-35%. Chest X Ray: No acute pulmonary process. Treatment: Oral Lasix 20 mg In your professional opinion, can you please clarify the [acuity and type] of CHF if known? [x ] Chronic Systolic Heart Failure (reduced EF) [ ] Other, please specify [ ] Unable to determine MTDD
== END 2022-11-26 18:17 | disposition home or self-care (01) | DRG 309 ==
LOC: EC 16:03 → 3SCARD 20:17
PROVIDERS: ADMIT Family Medicine; ATTEND Family Medicine
PROC: B246ZZ4 Ultrasonography of Right and Left Heart, Transesophageal (ICD-10-PCS; 2022-11-26)
PROC: 5A2204Z Restoration of Cardiac Rhythm, Single (ICD-10-PCS; principal; 2022-11-26 07:15)
DX: I48.19 Other persistent atrial fibrillation (principal); I50.22 Chronic systolic (congestive) heart failure; I42.9 Cardiomyopathy, unspecified; I11.0 Hypertensive heart disease with heart failure; N30.90 Cystitis, unspecified without hematuria; I08.1 Rheumatic disorders of both mitral and tricuspid valves; E78.5 Hyperlipidemia, unspecified; Z79.01 Long term (current) use of anticoagulants; Z79.899 Other long term (current) drug therapy; Z87.440 Personal history of urinary (tract) infections; Z82.49 Family history of ischemic heart disease and other diseases of the circulatory system
CPT/HCPCS: 36415; 71046; 80048; 80053; 81001; 83735; 84443; 84484; 85025; 85610; 85730; 87040; 92960; 93005; 93312; 93320; 93325; 96361; 96365; 96366; 96375; 99285

== ENCOUNTER 2024-02-17 10:49 | Inpatient (IN) | payer MEDICARE ==
--- NOTE | 2024-02-17 11:30 | ED ---
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 Patient states that she has a history of A-fib. Patient states that she missed her last 2 doses of metoprolol as she was traveling. Patient had appointment with director of hospitality today and sent over here. Patient states she has some minimal chest discomfort she does feel that her heart is racing and has mild shortness of breath. Patient denies any leg pain or leg swelling - Related Data Home Medications Medication Instructions Recorded Confirmed Atorvastatin [Lipitor] 40 mg PO DAILY 01/19/16 02/17/24 Apixaban [Eliquis] 5 mg PO BID 11/20/22 02/17/24 Cholecalciferol [Vitamin D3 (125 125 mcg PO DAILY 02/17/24 02/17/24 Mcg = 5000 Iu)] Furosemide [Lasix] 20 mg PO DAILY 02/17/24 02/17/24 Metoprolol Tartrate [Lopressor] 50 mg PO BID 02/17/24 02/17/24 Previous Rx's Medication Instructions Recorded lisinopriL [Zestril] 20 mg PO DAILY tab 02/17/19 Allergies Allergy/AdvReac Type Severity Reaction Status Date / Time No Known Allergies Allergy Verified 02/17/24 11:48 Review of Systems ROS Statement: Those systems with pertinent positive or pertinent negative responses have been documented in the HPI. ROS Other: All systems not noted in ROS Statement are negative. Past Medical History Past Medical History: Atrial Fibrillation, Heart Failure, CVA/TIA, Hypertension Additional Past Medical History / Comment(s): TIA, BRONCHITIS, UTI'S,ARHTRITIS, ANEMIA WHEN SHE WAS , STRESS TEST(WNL) PT PUT HER SELF ON LOW CARB DIET AND LOST 40 POUNDS IN A YEAR. BROKE RT HAND D/T A FALL JUST GOT CAST OFF 3 DAYS AGO,OFF WORK FOR PT.PAST CHF(2013), PT ON COUMADIN FOR AFIB. History of Any Multi-Drug Resistant Organisms: None Reported Past Surgical History: Section Additional Past Surgical History / Comment(s): X3, TUMMY TUCK Past Anesthesia/Blood Transfusion Reactions: Motion Sickness Past Psychological History: No Psychological Hx Reported Smoking Status: Never smoker Past Alcohol Use History: None Reported Past Drug Use History: None Reported - Past Family History Father Family Medical History: CVA/TIA, Myocardial Infarction ([place]) Additional Family Medical History / Comment(s): PACEMAKER Mother Family Medical History: Cancer Additional Family Medical History / Comment(s): LYMPHOMA General Exam Limitations: no limitations General appearance: alert, in no apparent distress Head exam: Present: atraumatic, normocephalic, normal inspection Neck exam: Present: normal inspection. Absent: tenderness, meningismus, lymphadenopathy Respiratory exam: Present: normal lung sounds bilaterally. Absent: respiratory distress, wheezes, rales, rhonchi, stridor Cardiovascular Exam: Present: tachycardia, irregular rhythm, normal heart sounds. Absent: regular rate, normal rhythm, systolic murmur, diastolic murmur, rubs, gallop, clicks GI/Abdominal exam: Present: soft, normal bowel sounds. Absent: distended, tenderness, guarding, rebound, rigid Course Vital Signs 02/17/24 02/17/24 02/17/24 10:52 11:30 12:15 Temperature 97.4 F L Pulse Rate 63 150 H 161 H Respiratory 18 22 Rate Blood Pressure 125/104 163/87 O2 Sat by Pulse 97 98 Oximetry 02/17/24 02/17/24 02/17/24 13:00 14:04 17:33 Temperature Pulse Rate 90 93 99 Respiratory 20 18 18 Rate Blood Pressure 147/86 148/90 151/85 O2 Sat by Pulse 97 97 97 Oximetry 02/17/24 18:11 Temperature 98.1 F Pulse Rate 101 H Respiratory 18 Rate Blood Pressure 144/97 O2 Sat by Pulse 97 Oximetry EKG Findings - EKG Comments: EKG Findings:: EKG performed 11: 07 A-fib with RVR rate of 156 QRS 78 QT/QTc 280/368 - EKG Results: EKG: interpreted by [facility] Medical Decision Making - Medical Decision Making Was pt. sent in by a medical professional or institution (, PA, HEDIS REVIEW NURSE, urgent care, hospital, or longterm...) When possible be specific @ -Closing Coordinator Did you speak to anyone other than the patient for history (EMS, parent, family, police, friend...)? What history was obtained from this source @ -No Did you review nursing and triage notes (agree or disagree)? Why? @ -I reviewed and agree with nursing and triage notes Were old charts reviewed (outside hosp., previous admission, EMS record, old EKG, old radiological studies, urgent care reports/EKG's, longterm records)? Report findings @ -No old charts were reviewed Differential Diagnosis (chest pain, altered mental status, abdominal pain women, abdominal pain men, vaginal bleeding, weakness, fever, dyspnea, syncope, headache, dizziness, GI bleed, back pain, seizure, CVA, palpatations, mental health, musculoskeletal)? @ -[Differential Palpitations Ventricular arrhythmias, atrial arrhythmias, myocardial infarction, anemia, thyrotoxicosis, electrolyte imbalance, hypokalemia, pulmonary embolism, pulmonary disease, drugs, alcohol, anxiety, stress.... This is not meant to be an all-inclusive list. EKG interpreted by me (3pts min.). @ -As above X-rays interpreted by me (1pt min.). @ -Chest x-ray shows no acute cardiopulmonary process. CT interpreted by me (1pt min.). @ -None done U/S interpreted by me (1pt. min.). @ -None done What testing was considered but not performed or refused? (CT, X-rays, U/S, labs)? Why? @ -None What meds were considered but not given or refused? Why? @ -None Did you discuss the management of the patient with other professionals (professionals i.e. , PA, HEDIS REVIEW NURSE, lab, RT, psych nurse, dialysis social worker, undertaker assistant, teacher, tactical intelligence officer, case filler)? Give summary @ -Dr. Novak for admission Was smoking cessation discussed for >3mins.? @ -No Was critical care preformed (if so, how long)? @ -35 minutes of critical care Were there social determinants of health that impacted care today? How? (Homelessness, low income, unemployed, alcoholism, drug addiction, transportation, low edu. Level, literacy, decrease access to med. care, ch[facility], rehab)? @ -No Was there de-escalation of care discussed even if they declined (Discuss DNR or withdrawal of care, Hospice)? DNR status @ -No What co-morbidities impacted this encounter? (DM, HTN, Smoking, COPD, CAD, Cancer, CVA, ARF, Chemo, Hep., AIDS, mental health diagnosis, sleep apnea, morbid obesity)? @ -None Was patient admitted / discharged? Hospital course, mention meds given and route, prescriptions, significant lab abnormalities, going to OR and other perti nent info. @ -Admitted patient presented from cardiology office for A-fib RVR patient was started on Cardizem, patient cardiology requested oral amiodarone to be started. Patient will be admitted for further treatment, monitoring and evaluation. Undiagnosed new problem with uncertain prognosis? @ -No Drug Therapy requiring intensive monitoring for toxicity (Heparin, Nitro, Insulin, Cardizem)? @ -Cardizem Were any procedures done? @ -No Diagnosis/symptom? @ -A-fib RVR Acute, or Chronic, or Acute on Chronic? @ -Acute Uncomplicated (without systemic symptoms) or Complicated (systemic symptoms)? @ -Complicated Side effects of treatment? @ -No Exacerbation, Progression, or Severe Exacerbation? @ -No Poses a threat to life or bodily function? How? (Chest pain, [place], [place], pneumonia, PE, COPD, DKA, ARF, appy, cholecystitis, CVA, Diverticulitis, Homicidal, Suicidal, threat to staff... and all critical care pts) @ -Yes risks of cardiac function - Lab Data Result diagrams: 02/17/24 11:37 02/17/24 11:37 Lab Results 02/17/24 02/17/24 02/17/24 Range/Units 11:37 11:37 11:37 WBC 5.5 (3.8-10.6) k/uL RBC 4.68 (3.80-5.40) m/uL Hgb 14.0 (11.4-16.0) gm/dL Hct 41.7 (34.0-46.0) % MCV 89.2 (80.0-100.0) fL MCH 29.9 (25.0-35.0) pg MCHC 33.5 (31.0-37.0) g/dL RDW 13.7 (11.5-15.5) % Plt Count 149 L (150-450) k/uL MPV 7.5 Neutrophils % 66 % Lymphocytes % 26 % Monocytes % 5 % Eosinophils % 2 % Basophils % 1 % Neutrophils # 3.6 (1.3-7.7) k/uL Lymphocytes # 1.4 (1.0-4.8) k/uL Monocytes # 0.3 (0-1.0) k/uL Eosinophils # 0.1 (0-0.7) k/uL Basophils # 0.0 (0-0.2) k/uL PT 11.1 (10.0-12.5) sec INR 1.0 (<1.2) APTT 22.8 (22.0-30.0) sec Sodium 144 (137-145) mmol/L Potassium 4.0 (3.5-5.1) mmol/L Chloride 111 H (98-107) mmol/L Carbon Dioxide 22 (22-30) mmol/L Anion Gap 11 mmol/L BUN 24 H (7-17) mg/dL Creatinine 1.24 H (0.52-1.04) mg/dL Est GFR (CKD-EPI)AfAm 51 (>60 ml/min/1.73 sqM) Est GFR (CKD-EPI)NonAf 44 (>60 ml/min/1.73 sqM) Glucose 116 H (74-99) mg/dL Calcium 9.7 (8.4-10.2) mg/dL Magnesium 2.0 (1.6-2.3) mg/dL Total Bilirubin 1.0 (0.2-1.3) mg/dL AST 23 (14-36) U/L ALT 18 (4-34) U/L Alkaline Phosphatase 129 H (38-126) U/L Troponin I (0.000-0.034) ng/mL Total Protein 6.8 (6.3-8.2) g/dL Albumin 4.7 (3.5-5.0) g/dL 02/17/24 Range/Units 11:37 WBC (3.8-10.6) k/uL RBC (3.80-5.40) m/uL Hgb (11.4-16.0) gm/dL Hct (34.0-46.0) % MCV (80.0-100.0) fL MCH (25.0-35.0) pg MCHC (31.0-37.0) g/dL RDW (11.5-15.5) % Plt Count (150-450) k/uL MPV Neutrophils % % Lymphocytes % % Monocytes % % Eosinophils % % Basophils % % Neutrophils # (1.3-7.7) k/uL Lymphocytes # (1.0-4.8) k/uL Monocytes # (0-1.0) k/uL Eosinophils # (0-0.7) k/uL Basophils # (0-0.2) k/uL PT (10.0-12.5) sec INR (<1.2) APTT (22.0-30.0) sec Sodium (137-145) mmol/L Potassium (3.5-5.1) mmol/L Chloride (98-107) mmol/L Carbon Dioxide (22-30) mmol/L Anion Gap mmol/L BUN (7-17) mg/dL Creatinine (0.52-1.04) mg/dL Est GFR (CKD-EPI)AfAm (>60 ml/min/1.73 sqM) Est GFR (CKD-EPI)NonAf (>60 ml/min/1.73 sqM) Glucose (74-99) mg/dL Calcium (8.4-10.2) mg/dL Magnesium (1.6-2.3) mg/dL Total Bilirubin (0.2-1.3) mg/dL AST (14-36) U/L ALT (4-34) U/L Alkaline Phosphatase (38-126) U/L Troponin I <0.012 (0.000-0.034) ng/mL Total Protein (6.3-8.2) g/dL Albumin (3.5-5.0) g/dL Critical Care Time Critical Care Time: Yes Total Critical Care Time: 35 Disposition Clinical Impression: Atrial fibrillation with rapid ventricular response Disposition: ADMITTED IP TO THIS [facility] Condition: Fair Time of Disposition: 12:15
[2024-02-17] MEDS: SODIUM CHLORIDE 0.9% 500 ML 500 ML IV STA (11:39)
[2024-02-17] MEDS: AMIODARONE 200 MG TAB PO STA (11:40)
[2024-02-17 11:44] LABS: Basophils % (A) 1 %; Eosinophils # (A) 0.1 k/uL (0-0.7); Eosinophils % (A) 2 %; HCT 41.7 % (34.0-46.0); Lymphocytes # (A) 1.4 k/uL (1.0-4.8); Lymphocytes % (A) 26 %; MCH 29.9 pg (25.0-35.0); MCHC 33.5 g/dL (31.0-37.0); MCV 89.2 fL (80.0-100.0); Mean Platelet Volume 7.5; Monocytes # (A) 0.3 k/uL (0-1.0); Monocytes % (A) 5 %; Neutrophils # (A) 3.6 k/uL (1.3-7.7); Neutrophils % (A) 66 %; Platelet Count 149 k/uL (150-450); RBC 4.68 m/uL (3.80-5.40); RDW 13.7 % (11.5-15.5); WBC 5.5 k/uL (3.8-10.6)
[2024-02-17 11:53] LABS: ALT 18 U/L (4-34); AST 23 U/L (14-36); African American GFR (CKD) 51 (>60 ml/min/1.73 sqM); Albumin 4.7 g/dL (3.5-5.0); Alkaline Phosphatase 129 U/L (38-126); Anion Gap 11 mmol/L; Blood Urea Nitrogen 24 mg/dL (7-17); Calcium 9.7 mg/dL (8.4-10.2); Carbon Dioxide 22 mmol/L (22-30); Chloride 111 mmol/L (98-107); Glucose 116 mg/dL (74-99); Non-African American GFR(CKD) 44 (>60 ml/min/1.73 sqM); Sodium 144 mmol/L (137-145); Total Protein 6.8 g/dL (6.3-8.2)
[2024-02-17 11:54] LABS: Partial Thromboplastin Time 22.8 sec (22.0-30.0); Prothrombin Time 11.1 sec (10.0-12.5)
--- NOTE | 2024-02-17 12:10 | XR ---
EXAMINATION TYPE: XR chest 2V DATE OF EXAM: 02/17/2024 COMPARISON: 11/20/2022 CLINICAL INDICATION: Female, 68 years old with history of dysrhythmia; , TECHNIQUE: XR chest 2V views of the chest. FINDINGS: The lungs are clear and there is no pneumothorax, pleural effusion, or focal pneumonia. The heart is enlarged. Prominent pericardial fat pad along the right cardiac border. Generalized demineralization .. Osseous structures demonstrate hypertrophic and degenerative changes of the spine. IMPRESSION: 1. No acute process. 2. Cardiomegaly. [facility], , 02/17/2024 12:08 PM
[2024-02-17] MEDS ORDERED: NITROGLYCERIN SL TABS 0.4 MG TAB SUBLINGUAL PRN (12:15)
[2024-02-17] MEDS: DILTIAZEM DRIP BOLUS FROM BAG 1 MG SOLN IV ONE (12:17)
[2024-02-17] MEDS: DILTIAZEM 125 MG in SODIUM CHLORIDE 0.9% 100 ML IV SCH (12:19)
[2024-02-18 07:43] VITALS: RESP 14
[2024-02-18] MEDS: CHOLECALCIFEROL 125 MCG (5000 IU) TABLET PO SCH (09:49)
[2024-02-18] MEDS: METOPROLOL TARTRATE 50 MG TAB PO SCH (09:49)
[2024-02-18] MEDS: FUROSEMIDE 20 MG TAB PO SCH (09:49)
[2024-02-18] MEDS: ATORVASTATIN 40 MG TAB PO SCH (09:49)
[2024-02-18] MEDS: lisinopriL 20 MG TAB PO SCH (09:49)
[2024-02-18] MEDS: AMIODARONE 200 MG TAB PO SCH (09:49)
--- NOTE | 2024-02-18 10:47 | P.HPIM ---
History of Present Illness H&P Date: 02/18/24 Chief Complaint: atrial fibrillation with rapid ventricular response The patient is a 68-year-old white female who was receiving an echocardiogram found to have atrial fibrillation RVR. She is essentially admitted and started on amiodarone. She has not been stabilized with normal ventricular response. Cardiology will clear for discharge later today and we will cardiovert as an outpatient. The patient is stable some mild shortness of breath with a exertion but back to her baseline. No voiding symptoms. She has been fairly compliant taking most of her medication. Review of Systems All systems: negative Eyes: denies blurred vision, denies pain Ears, nose, mouth and throat: Denies headache, Denies sore throat Cardiovascular: Reports as per HPI Respiratory: Denies cough Gastrointestinal: Denies abdominal pain, Denies diarrhea, Denies nausea, Denies vomiting Past Medical History Past Medical History: Atrial Fibrillation, Heart Failure, CVA/TIA, Hypertension Additional Past Medical History / Comment(s): TIA, BRONCHITIS, UTI'S,ARHTRITIS, ANEMIA WHEN SHE WAS , STRESS TEST(WNL) PT PUT HER SELF ON LOW CARB DIET AND LOST 40 POUNDS IN A YEAR. BROKE RT HAND D/T A FALL JUST GOT CAST OFF 3 DAYS AGO,OFF WORK FOR PT.PAST CHF(2013), PT ON COUMADIN FOR AFIB. History of Any Multi-Drug Resistant Organisms: None Reported Past Surgical History: Section Additional Past Surgical History / Comment(s): X3, TUMMY TUCK Past Anesthesia/Blood Transfusion Reactions: No Reported Reaction Past Psychological History: No Psychological Hx Reported Smoking Status: Never smoker Past Alcohol Use History: None Reported Past Drug Use History: None Reported - Past Family History Father Family Medical History: CVA/TIA, Myocardial Infarction ([place]) Additional Family Medical History / Comment(s): PACEMAKER Mother Family Medical History: Cancer Additional Family Medical History / Comment(s): LYMPHOMA Medications and Allergies Home Medications Medication Instructions Recorded Confirmed Type Atorvastatin [Lipitor] 40 mg PO DAILY 01/19/16 02/17/24 History lisinopriL [Zestril] 20 mg PO DAILY tab 02/17/19 02/17/24 Rx Apixaban [Eliquis] 5 mg PO BID 11/20/22 02/17/24 History Cholecalciferol [Vitamin D3 (125 125 mcg PO DAILY 02/17/24 02/17/24 History Mcg = 5000 Iu)] Furosemide [Lasix] 20 mg PO DAILY 02/17/24 02/17/24 History Metoprolol Tartrate [Lopressor] 50 mg PO BID 02/17/24 02/17/24 History Allergies Allergy/AdvReac Type Severity Reaction Status Date / Time No Known Allergies Allergy Verified 02/17/24 11:48 Physical Exam Vitals: Vital Signs Temp Pulse Pulse Resp BP BP Pulse Ox 02/18/24 07:40 98.4 F 84 14 150/78 96 02/18/24 04:00 95 18 156/99 98 02/18/24 02:10 98.2 F 85 18 171/84 98 02/18/24 01:18 76 18 144/96 98 02/17/24 21:34 90 18 139/85 98 02/17/24 19:42 93 18 149/109 96 02/17/24 18:11 98.1 F 101 H 18 144/97 97 02/17/24 17:33 99 18 151/85 97 02/17/24 14:04 93 18 148/90 97 02/17/24 13:00 90 20 147/86 97 02/17/24 12:15 161 H 22 163/87 98 02/17/24 11:30 150 H 02/17/24 10:52 97.4 F L 63 18 125/104 97 Intake and Output 02/17/24 02/18/24 02/18/24 22:59 06:59 14:59 Intake Total 281.25 Balance 281.25 Intake: Intake, IV Titration 101.25 Amount Diltiazem 125 mg In 101.25 Sodium Chloride 0.9% 100 ml @ 5 MG/HR 5 mls/hr IV .Q24H [facility] Rx#:[id number] Oral 180 Other: Voiding Method Toilet # Voids 1 Weight 89.4 kg - Constitutional General appearance: no acute distress - EENT Eyes: EOMI - Neck Neck: no lymphadenopathy - Respiratory Respiratory: bilateral: diminished - Cardiovascular Rhythm: irregularly irregular Heart sounds: normal: S1, S2 Abnormal Heart Sounds: no S3 Gallop - Gastrointestinal General gastrointestinal: soft - Integumentary Integumentary: no cellulitis - Neurologic Neurologic: CNII-XII intact - Musculoskeletal Musculoskeletal: gait normal Results CBC & Chem 7: 02/17/24 11:37 02/17/24 11:37 Labs: Abnormal Lab Results - Last 24 Hours (Table) 02/17/24 02/17/24 Range/Units 11:37 11:37 Plt Count 149 L (150-450) k/uL Chloride 111 H (98-107) mmol/L BUN 24 H (7-17) mg/dL Creatinine 1.24 H (0.52-1.04) mg/dL Glucose 116 H (74-99) mg/dL Alkaline Phosphatase 129 H (38-126) U/L Thrombosis Risk Factor Assmnt - Choose All That Apply Each Factor Represents 1 point: Obesity (BMI >25) Other Risk Factors: Yes Each Risk Factor Represents 2 Points: Age 61-74 years Thrombosis Risk Factor Assessment Total Risk Factor Score: 3 Thrombosis Risk Factor Assessment Level: Moderate Risk Assessment and Plan (1) Atrial fibrillation with rapid ventricular response Current Visit: Yes Status: Acute Code(s): I48.91 - UNSPECIFIED ATRIAL FIBRILLATION SNOMED Code(s): 611431950260067 (2) Hypertension Current Visit: No Status: Acute Code(s): I10 - ESSENTIAL (PRIMARY) HYPERTENSION SNOMED Code(s): 37777065 Plan: The patient is now stabilized. We will anticipate discharge later today. Medications reconciled. The patient is a full code. Appreciate cardiology input. Time with Patient: Greater than 30
--- NOTE | 2024-02-18 10:49 | P.DS ---
Providers Date of admission: 02/17/24 12:39 Attending physician: Kiran Novak Consults: 02/17/24 12:16 Consult Physician Urgent Consulting Provider: Bharat Amin Consult Reason/Comments: afib rvr Do you want consulting provider notified?: Yes Primary care physician: Kiran Novak - Discharge Diagnosis(es) (1) Atrial fibrillation with rapid ventricular response Current Visit: Yes Status: Acute (2) Hypertension Current Visit: No Status: Acute Hospital Course: The patient is a 68-year-old white female essential admitted for atrial fibrillation with rapid ventricular response. The patient was stabilized with amiodarone and Cardizem drip. The patient will be discharged on amiodarone. Compliance with medications was discussed. She will follow-up with cardiology for probable cardioversion. The patient will see me in about 7 days for appropriate follow-up as well. The patient is discharged stable condition voiding without difficulties. Heart rate is in atrial fibrillation but with normal rate. Patient Condition at Discharge: Fair Plan - Discharge Summary Discharge Rx Participant: Yes New Discharge Prescriptions: New Amiodarone [Cordarone] 200 mg PO BID #60 tab Continue Atorvastatin [Lipitor] 40 mg PO DAILY lisinopriL [Zestril] 20 mg PO DAILY tab Furosemide [Lasix] 20 mg PO DAILY Apixaban [Eliquis] 5 mg PO BID Cholecalciferol [Vitamin D3 (125 Mcg = 5000 Iu)] 125 mcg PO DAILY Metoprolol Tartrate [Lopressor] 50 mg PO BID Discharge Medication List Atorvastatin [Lipitor] 40 mg PO DAILY 01/19/16 [History] lisinopriL [Zestril] 20 mg PO DAILY tab 02/17/19 [Rx] Apixaban [Eliquis] 5 mg PO BID 11/20/22 [History] Cholecalciferol [Vitamin D3 (125 Mcg = 5000 Iu)] 125 mcg PO DAILY 02/17/24 [History] Furosemide [Lasix] 20 mg PO DAILY 02/17/24 [History] Metoprolol Tartrate [Lopressor] 50 mg PO BID 02/17/24 [History] Amiodarone [Cordarone] 200 mg PO BID #60 tab 02/18/24 [Rx] Follow up Appointment(s)/Referral(s): Kiran Novak MD [Primary Care Provider] - 1 Week Discharge Disposition: HOME SELF-CARE
[2024-02-18 12:07] VITALS: BP 144/93; PULSE 67; TEMP 98.3
[2024-02-18 12:13] LABS: Chol/HDL Ratio 2.12 Ratio; LDL Cholesterol,Calculated 60.2 mg/dL (0.0-131.0); VLDL Calculation 19.22 mg/dL (5.00-40.00)
[2024-02-18] MEDS ORDERED: APIXABAN 5 MG TAB PO SCH (21:00)
--- NOTE | 2024-02-20 08:16 | CONS ---
CONSULTATION CHIEF COMPLAINT: Atrial fibrillation with rapid ventricular rate. HISTORY OF PRESENT ILLNESS: The patient is a 68-year-old lady with history of dilated cardiomyopathy, persistent atrial fibrillation, who came to my office for an echocardiogram to follow her cardiomyopathy and was found to be in atrial fibrillation with rapid ventricular rate with heart rates in the 160s and 170s. I sent her to the emergency room at [facility] where she was started on Cardizem drip and at the time of my evaluation this morning, she is feeling much better. Heart rates are well controlled. The patient is on metoprolol 50 b.i.d., which had been resumed. I also started her on amiodarone. At the time of my evaluation this morning, she is stable hemodynamically, blood pressure is 150/78, respiratory rate is 18, and heart rate is 84 beats per minute. The plan at this stage is to stop the IV Cardizem, ambulate her, and if she is feeling fine, discharge her home and arrange outpatient followup and consider JOE cardioversion down the road. The patient will also need a referral to EP for a possible AICD. PAST MEDICAL HISTORY: Significant for cardiomyopathy and atrial fibrillation. CURRENT MEDICATIONS: Include, 1. Zestril 20 daily. 2. Lipitor 40 daily. 3. Eliquis 5 b.i.d. 4. Lopressor 50 b.i.d. 5. Lasix 20 daily. ALLERGIES: There are no known drug allergies. FAMILY HISTORY: Negative for premature coronary artery disease. SOCIAL HISTORY: Negative for smoking, EtOH abuse, or drug abuse. REVIEW OF SYSTEMS: 14 out of 14 review of systems has been performed. Pertinents are as documented. PHYSICAL EXAMINATION: GENERAL: The patient is comfortable at rest. VITAL SIGNS: Afebrile. Heart rate is 84 beats per minute. Blood pressure is 150/78, respiratory rate is 18, O2 saturation is 96% on room air. NECK: There is no jugular venous distention. Carotid upstroke is normal. There is no bruit. CHEST: Reveals good air entry bilaterally. HEART: Reveals first and second heart sounds. Irregular rhythm. Systolic murmur at the apex. ABDOMEN: Soft. EXTREMITIES: Exam of extremities did not reveal any edema. Peripheral pulses are felt. LABORATORY DATA: Showed that the hemoglobin is normal at 14. Troponins are negative. ASSESSMENT: 1. Persistent atrial fibrillation with poorly controlled ventricular rate. 2. Cardiomyopathy with severe LV systolic dysfunction. 3. Moderate mitral regurgitation. PLAN: We will stop the Cardizem. Continue current medications, ambulate. If she is feeling well, she can be discharged home and arrange outpatient followup with my office and I will consider cardioversion. I started her on amiodarone and if necessary, we will adjust the antihypertensive that she is on. MMODL / IJN: [id number] /
== END 2024-02-18 13:40 | disposition home or self-care (01) | DRG 310 ==
LOC: EC 10:49 → 3SCARD 12:39
PROVIDERS: ADMIT Family Medicine; ATTEND Family Medicine
DX: I48.19 Other persistent atrial fibrillation (principal); I11.0 Hypertensive heart disease with heart failure; Z79.01 Long term (current) use of anticoagulants; Z79.899 Other long term (current) drug therapy; Z82.49 Family history of ischemic heart disease and other diseases of the circulatory system; Z87.81 Personal history of (healed) traumatic fracture; Z91.81 History of falling; I42.0 Dilated cardiomyopathy; I34.0 Nonrheumatic mitral (valve) insufficiency; I50.9 Heart failure, unspecified
CPT/HCPCS: 36415; 71046; 80053; 80061; 83735; 84484; 85025; 85610; 85730; 93005; 96361; 96365; 96366; 99291